=== PATIENT | male | born 1965 | race Caucasian/White ===

== ENCOUNTER → 2017-02-03 | Outpatient (CLI) | payer OTHER ==
[2017-02-03 15:37] LABS: CHLORIDE,CL 99 mmol/L (98-110); SODIUM,NA 136 mmol/L (136-146)
--- NOTE | 2017-02-04 09:27 | CR ---
EXAMINATION: Right shoulder HISTORY: Pain COMPARISON: None TECHNIQUE: 3 views FINDINGS/IMPRESSION: There is no acute osseous abnormality, dislocation, or fracture identified. Bon e mineralization appears normal. 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
== END ==
LOC: MW.CHIM 14:55
PROVIDERS: ATTEND Internal Medicine
DX: M65.4 Radial styloid tenosynovitis [de Quervain] (principal); M19.011 Primary osteoarthritis, right shoulder
CPT/HCPCS: 36415; 73030-26-RT; 73030-RT; 80053; 80061; 84550; 85025; 85652

== ENCOUNTER 2017-07-09 09:04 | Day surgery (SDC) | payer OTHER ==
[~2017-07-09 09:04] MED LIST: Bupivacaine 25%/EPINEPHrine/PF 30 ML ONE
--- NOTE | 2017-07-09 09:49 | PCM.PREANE ---
Preanesthetic Assessment - Anesthesia/Transfusion/Family Hx Anesthesia History: Prior Anesthesia Without Reaction Family History of Anesthesia Reaction: No Transfusion History: No Prior Transfusion(s) Intubation History: Unknown - Review of Systems General: No Symptoms Pulmonary: No Symptoms Cardiovascular: No Symptoms Neurological: No Symptoms Other: Reports: None - Physical Assessment O2 Sat by Pulse Oximetry: 98 Respiratory Rate: 16 Vital Signs: Last Vital Signs Temp 36.5 C 07/09/17 09:31 Pulse 75 07/09/17 09:31 Resp 16 07/09/17 09:31 BP 133/84 07/09/17 09:31 Pulse Ox 98 07/09/17 09:31 Height: 1.8 m Weight: 95.254 kg ASA Class: 2 Mental Status: Alert & Oriented x3 Airway Class: Mallampati = 2 Dentition: Reports: Normal Dentition Thyro-Mental Finger Breadths: 3 Mouth Opening Finger Breadths: 3 ROM/Head Extension: Full Lungs: Clear to Auscultation, Normal Respiratory Effort Cardiovascular: Regular Rate, Regular Rhythm - Allergies Allergies/Adverse Reactions: Allergies Allergy/AdvReac Type Severity Reaction Status Date / Time No Known Allergies Allergy Verified 07/06/17 16:54 - Blood Blood Available: No - Anesthesia Plan Pre-Op Medication Ordered: None - Acknowledgements Anesthesia Type Planned: General Anesthesia Pt an Appropriate Candidate for the Planned Anesthesia: Yes Alternatives and Risks of Anesthesia Discussed w Pt/Guardian: Yes Pt/Guardian Understands and Agrees with Anesthesia Plan: Yes PreAnesthesia Questionnaire Other HEENT History: uses reading glasses Gastrointestinal History: Reports: GERD, Hepatitis Other Gastrointestinal History: Hepatitis C Musculoskeletal History: Reports: Back Pain, Chronic, Fracture Other Musculoskeletal History: hx of fx thumb Neurological History: Reports: Concussion Psychiatric History: Reports: PTSD - Past Surgical History HEENT Surgical History: Reports: Tonsillectomy, Other (See Below) Other HEENT Surgeries/Procedures: closed reduction fx nose, hx of Laryngoscopy with polyp removal - SUBSTANCE USE Smoking Status *Q: Current Every Day Smoker Tobacco Use Within Last Twelve Months: Smokeless Tobacco Recreational Drug Use History: Yes Recreational Drug Type: Reports: Marijuana/Hashish - HOME MEDS Home Medications: Home Meds Omeprazole Magnesium [Prilosec Otc] 20 mg PO DAILY 07/06/17 [History] - CURRENT (IN HOUSE) MEDS Current Meds: Current Medications Hydrocodone Bitart/Acetaminophen ([place] 325-5 Mg) 1 tab PO Q4H PRN PRN Reason: Pain Bupivacaine HCl/Epinephrine Bitart (Marcaine 0.25%/Epinephrine 1:200,000) 20 ml INJECT ONETIME ONE Stop: 07/09/17 10:01 Cefazolin Sodium/Dextrose 2 gm (/ Premix) 50 mls @ 100 mls/hr IV ONETIME ONE Stop: 07/09/17 10:29 Lactated Ringer's (Ringers, Lactated) 1,000 mls @ 125 mls/hr IV ASDIRECTED JC Last Admin: 07/09/17 09:33 Dose: 125 mls/hr Triamcinolone Acetonide (Kenalog-40) 40 mg INJECT ONETIME ONE Stop: 07/09/17 10:01 Discontinued Medications Bupivacaine HCl/Epinephrine Bitart (Sensorc Mpf 0.25%-Epi 1:[id number]) Confirm Administered Dose 60 mls @ as directed .ROUTE .STK-MED ONE Stop: 07/09/17 07:46
[2017-07-09] MEDS ORDERED: Acetaminophen/HYDROcodone 325-5 MG Tab PO PRN (10:00)
[2017-07-09] MEDS ORDERED: ceFAZolin 2 GM in Premix Bag 1 BAG IV ONE (10:00)
[2017-07-09] MEDS ORDERED: Bupivacaine 0.25%/EPINEPHrine 1:200,000 10 ML SDV INJECT ONE (10:00)
[2017-07-09] MEDS ORDERED: Triamcinolone Acetonide 40 MG/ML 1 ML MDV INJECT ONE (10:00)
[2017-07-09] MEDS ORDERED: Lactated Ringers 1,000 ML IV SCH (10:00)
[2017-07-09] MEDS ORDERED: Ondansetron 4 MG/2 ML SDV ONE (10:12)
[2017-07-09] MEDS ORDERED: Propofol 200 MG/20 ML SDV ONE (10:12)
[2017-07-09] MEDS ORDERED: Midazolam 1 MG/ML 2 ML SDV ONE (10:12)
[2017-07-09] MEDS ORDERED: fentaNYL 100 MCG/2 ML SDV ONE (10:12)
[2017-07-09] MEDS ORDERED: Dexamethasone 4 MG/ML 5 ML MDV ONE (11:08)
[2017-07-09] MEDS ORDERED: HYDROmorphone 2 MG/ML Syringe ONE (11:18)
[2017-07-09] MEDS ORDERED: Ketorolac 30 MG/ML SDV ONE (11:49)
--- NOTE | 2017-07-09 12:40 | PCM.OPNOTE ---
- General Post-Op/Procedure Note Date of Surgery/Procedure: 07/09/17 Operative Procedure(s): left cubital and carpal tunnel release, injection left epicondyle Pre Op Diagnosis: left cubital tunnel and left carpal tunnel syndrome and left lateral epicondylitis Anesthesia Technique: General LMA, Local Primary Surgeon: Kaylin Benito Disability Insurance Claim Examiner: Pippa Zhong Complications: None Condition: Good Free Text/Narrative:: Intake & Output 07/08/17 07/09/17 07/09/17 23:59 07:59 15:59 Intake Total 1250 Balance 1250 [id number]
[2017-07-09 13:02] VITALS: BP 126/73
--- NOTE | 2017-07-12 11:16 | OR ---
SURGEON: ADAM CHASE MD DATE OF PROCEDURE: 07/09/2017 PREOPERATIVE DIAGNOSIS: Left cubital tunnel and carpal tunnel syndrome and left lateral epicondylitis. POSTOPERATIVE DIAGNOSIS: Left cubital tunnel and carpal tunnel syndrome and left lateral epicondylitis. PROCEDURES: Left cubital and carpal tunnel releases and injection of left epicondyle. ANESTHESIA: Local with general LMA. STAND IN: [place]. INDICATIONS: Mr. Gomez is a 51-year-old gentleman with left carpal and cubital tunnel syndrome and lateral epicondylitis. Risks and benefits of release of the cubital tunnel and the carpal tunnel were discussed with him and injection of left lateral epicondyle. Risks and benefits including, but not limited to, bleeding, infection, damage to underlying or overlying structures, possible need for future interventions, and possible scarring. PROCEDURE IN DETAIL: After informed consent was obtained and placed on the chart, the patient was brought to the operating theater and laid in supine position. After adequate general anesthetic was obtained, the area was prepped and draped, and a time-out was completed to confirm side and site. Attention was then paid to exsanguination of the arm and insufflation of the tourniquet to 200 mmHg and injection of local anesthesia. Once adequately anesthetized, a 15-blade was used to dissect through skin and subcutaneous tissues over the transverse carpal ligament at the palm. Dissection was carried until I reached the ligament, and then dissection was carried distally and proximally using a Littler scissors. Once adequately dissected and complete release was ensured under direct visualization, the wound was irrigated and closed using 5-0 nylon stitches in a horizontal mattress fashion. Once adequately closed, the wound was dressed with Xeroform, fluffs, a Kerlix gauze dressing, and a 2-inch Sven wrap. Attention was then paid to the cubital tunnel and dissection was carried through the skin and subcutaneous tissues, again using a 15-blade after adequate local anesthesia. Dissection was carried through the subcutaneous tissues, spreading until direct visualization of the nerve. Dissection was then carried proximally into the arm to ensure release from any of the brachial fascia. Once this was adequately released and the finger was passed to ensure this, hemostasis was ensured and dissection was then carried distally. The cubital tunnel itself was released and extended through the two heads of the flexor carpial nerve. The muscle was released in layered fashion, and again a finger passed a distal inch, in order to ensure complete release of the nerve itself. Once adequately released, the tourniquet was desufflated, and meticulous hemostasis was obtained. The skin was closed using 3-0 Monocryl stitch in deep dermal fashion and running 4-0 subcuticular for the skin. The patient tolerated the procedure well. All counts and needles were correct at the end of the case. The left lateral epicondyle was injected with 1 mL of Kenalog 40 at the end of the case as well. The patient tolerated all of this well, and all counts and needles were correct. The patient will see us in clinic in 10 to 14 days or sooner if any problems, questions, or concerns. HEGGTSARAH / TRINITY /[id number]
== END 2017-07-09 13:00 | disposition home or self-care (01) ==
LOC: MW.SDS 09:04
PROVIDERS: ATTEND Plastic Surgery
DX: G56.22 Lesion of ulnar nerve, left upper limb (principal); G56.02 Carpal tunnel syndrome, left upper limb; M77.12 Lateral epicondylitis, left elbow; M18.11 Unilateral primary osteoarthritis of first carpometacarpal joint, right hand; K21.9 Gastro-esophageal reflux disease without esophagitis; B18.2 Chronic viral hepatitis C; F17.290 Nicotine dependence, other tobacco product, uncomplicated; Z90.89 Acquired absence of other organs; Z98.890 Other specified postprocedural states; Z79.899 Other long term (current) drug therapy
CPT/HCPCS: 20605; 64718; 64721; J1100; J1170; J2250; J2405; J3010; J7120; 01810; J2704

== ENCOUNTER 2017-07-21 00:27 | Emergency (ER) | payer OTHER ==
[2017-07-21] MEDS ORDERED: Acetaminophen/HYDROcodone 325-10 MG Tab PO ONE (00:46)
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
[2017-07-21 01:55] VITALS: BP 120/67
== END 2017-07-21 01:52 | disposition home or self-care (01) ==
LOC: MW.ED 00:27
DX: T81.4XXA Infection following a procedure, initial encounter (principal); L03.114 Cellulitis of left upper limb; G89.18 Other acute postprocedural pain; K21.9 Gastro-esophageal reflux disease without esophagitis; Z98.890 Other specified postprocedural states; Z79.2 Long term (current) use of antibiotics; Z79.899 Other long term (current) drug therapy
CPT/HCPCS: 99283; A9270; 99282

== ENCOUNTER 2018-03-11 14:37 | Emergency (ER) | payer OTHER ==
[2018-03-11] MEDS ORDERED: Sodium Chloride 0.9% 2.5 ML Syringe FLUSH PRN (14:58)
[2018-03-11] MEDS ORDERED: cefTRIAXone 2 GM in Premix Bag 1 BAG IV ONE (14:58)
[2018-03-11] MEDS ORDERED: Sodium Chloride 0.9% 10 ML Syringe FLUSH PRN (14:58)
[2018-03-11] MEDS ORDERED: Sodium Chloride 0.9% 1,000 ML IV ONE (15:06)
--- NOTE | 2018-03-11 15:06 | EDM.PDOC ---
ED HPI GENERAL MEDICAL PROBLEM - General Chief Complaint: General Stated Complaint: CONFUSE, DIZZY AND FACE SWOLLEN Time Seen by Provider: 03/11/18 14:58 Source of Information: Reports: Patient, Family History Limitations: Reports: No Limitations - History of Present Illness INITIAL COMMENTS - FREE TEXT/NARRATIVE: HISTORY AND PHYSICAL: []52-year-old male presents with facial pain History of Present Illness: []Patient states that he pulled a ingrown hair out of his nose left narisis and he feels miserable/ dizzy/ sore and swollento right side of his face Swelling has been present for 2-3 days Review of Systems: As per history of present illness and below otherwise all systems reviewed and negative. Past medical history: As per history of present illness and as reviewed below otherwise noncontributory. Surgical history: As per history of present illness and as reviewed below otherwise noncontributory. Social history: No reported history of drug or alcohol abuse. Family history: As per history of present illness and as reviewed below otherwise noncontributory. Physical exam: Alert gentleman answering questions appropriately in full sentences. HEENT: Atraumatic, normocehpalic, pupils reactive, negative for conjunctival pallor or scleral icterus, mucous membranes moist, throat clear, neck supple, nontender, trachea midline. Mild tenderness to the maxillary sinus area, edema noted to the right side of his face extending from the middle of right naris to upper mandible. Lungs: Clear to auscultation, breath sounds equal bilaterally, chest non tender. Heart: S1S2, regular, negative for clicks, rubs, or JVD. Abdomen: Soft, nondistended, nontender. Negative for masses or hepatossplenmegaly. Negative for costovertebral tenderness. Pelvis: Stable nontender. Genitourinary: Deferred. Rectal: Deferred Extremities: Atraumatic, negative for cords or calf pain. Neurovascular unremarkable. Neuro: Awake, alert, oriented. Cranial nerves II through XII unremarkable. Cerebellum unremarkable. Motor and sensory unremarkable throughout. Exam nonfocal. Have discussed the CT scan with radiologist from [facility]. Discussed this case with Dr. Ward. Then discussed with ENT specialist who accepted the patient for transfer. Discussed this with the patient and his and are agreeable for him to be evaluated with the understanding that possibly could be sent home tonight. They are both aware that he needs ENT evaluation with this abscess to his face. Diagnostics: []cbc, cmp, blood cultures, ct maxillary-facial Therapeutics: [] IV saline rocephin 2gm IV Zosyn vancomycin Impression: []Facial abscess Plan: []Transfer to [facility] emergency room for further evaluation Definitive disposition and diagnosis as appropriate pending reevaluation and review of above. Onset: Sudden Duration: Day(s):, Getting Worse Location: Reports: Face Quality: Reports: Stabbing Severity: Moderate Improves with: Reports: None Worsens with: Reports: None Associated Symptoms: Reports: Headaches right upper dental Pain Score (Numeric/FACES): 5 - Related Data Allergies Allergy/AdvReac Type Severity Reaction Status Date / Time No Known Allergies Allergy Verified 03/11/18 14:43 Home Meds: Home Meds Gabapentin [Neurontin] 300 mg PO DAILY 07/21/17 [History] Past Medical History HEENT History: Reports: Other (See Below) Other HEENT History: uses reading glasses Cardiovascular History: Reports: None Respiratory History: Reports: None Gastrointestinal History: Reports: GERD, Hepatitis Other Gastrointestinal History: Hepatitis C Genitourinary History: Reports: None Musculoskeletal History: Reports: Back Pain, Chronic, Fracture Other Musculoskeletal History: hx of fx thumb Neurological History: Reports: Concussion Psychiatric History: Reports: PTSD Endocrine/Metabolic History: Reports: None Hematologic History: Reports: None Immunologic History: Reports: None Oncologic (Cancer) History: Reports: None Dermatologic History: Reports: None - Infectious Disease History Infectious Disease History: Reports: Hepatitis C - Past Surgical History Head Surgeries/Procedures: Reports: None HEENT Surgical History: Reports: Tonsillectomy, Other (See Below) Other HEENT Surgeries/Procedures: closed reduction fx nose, hx of Laryngoscopy with polyp removal Cardiovascular Surgical History: Reports: None Respiratory Surgical History: Reports: None GI Surgical History: Reports: None Male Surgical History: Reports: None Endocrine Surgical History: Reports: None Neurological Surgical History: Reports: None Musculoskeletal Surgical History: Reports: None Oncologic Surgical History: Reports: None Dermatological Surgical History: Reports: None Social & Family History - Family History Family Medical History: Noncontributory - Tobacco Use Smoking Status *Q: Never Smoker Second Hand Smoke Exposure: No - Caffeine Use Caffeine Use: Reports: None - Recreational Drug Use Recreational Drug Use: No ED ROS GENERAL - Review of Systems Review Of Systems: ROS reveals no pertinent complaints other than HPI. ED EXAM, GENERAL - Physical Exam Exam: See Below (see dictation) Course - Vital Signs Last Recorded V/S: Last Vital Signs Temp 37.7 C 03/11/18 19:21 Pulse 91 03/11/18 19:21 Resp 18 03/11/18 19:21 BP 139/86 03/11/18 19:21 Pulse Ox 95 03/11/18 19:21 - Orders/Labs/Meds Orders: Active Orders 24 hr Category Date Time Status EKG 12 Lead [EKG Documentation Completion] [RC] STAT Care 03/11/18 14:38 Active Maxillofacial with CM [Max Facial Sinus w Cont] [CT] Exams 03/11/18 15:00 Taken Stat CULTURE BLOOD [BC] Stat Lab 03/11/18 15:10 Received CULTURE BLOOD [BC] Stat Lab 03/11/18 16:10 Results Morphine Med 03/11/18 19:49 Once 4 mg IVPUSH ONETIME ONE Sodium Chloride 0.9% [Normal Saline] 500 ml Med 03/11/18 18:00 Active IV STAT Sodium Chloride 0.9% [Saline Flush] Med 03/11/18 14:58 Active 10 ml FLUSH ASDIRECTED PRN Sodium Chloride 0.9% [Saline Flush] Med 03/11/18 14:58 Active 2.5 ml FLUSH ASDIRECTED PRN Blood Culture x2 Reflex Set [OM.PC] Stat Oth 03/11/18 14:58 Ordered Saline Lock Insert [OM.PC] Stat Oth 03/11/18 14:57 Ordered Medication Orders Sodium Chloride (Normal Saline) 500 mls @ 150 mls/hr IV STAT [facility] Last Admin: 03/11/18 18:45 Dose: 150 mls/hr Morphine Sulfate (Morphine) 4 mg IVPUSH ONETIME ONE Stop: 03/11/18 19:50 Sodium Chloride (Saline Flush) 10 ml FLUSH ASDIRECTED PRN PRN Reason: Keep Vein Open Sodium Chloride (Saline Flush) 2.5 ml FLUSH ASDIRECTED PRN PRN Reason: Keep Vein Open Labs: Laboratory Tests 03/11/18 03/11/18 Range/Units 15:10 15:10 WBC 9.57 (4.0-11.0) K/uL RBC 4.32 L (4.50-5.90) M/uL Hgb 12.7 L (13.0-17.0) g/dL Hct 38.2 (38.0-50.0) % MCV 88.4 (80.0-98.0) fL MCH 29.4 (27.0-32.0) pg MCHC 33.2 (31.0-37.0) g/dL RDW Std Deviation 43.0 (28.0-62.0) fl RDW Coeff of Kayla 13 (11.0-15.0) % Plt Count 199 (150-400) K/uL MPV 10.10 (7.40-12.00) fL Neut % (Auto) 66.3 (48.0-80.0) % Lymph % (Auto) 22.3 (16.0-40.0) % Toole % (Auto) 10.3 (0.0-15.0) % Eos % (Auto) 1.0 (0.0-7.0) % Baso % (Auto) 0.1 (0.0-1.5) % Neut # (Auto) 6.3 H (1.4-5.7) K/uL Lymph # (Auto) 2.1 (0.6-2.4) K/uL Toole # (Auto) 1.0 H (0.0-0.8) K/uL Eos # (Auto) 0.1 (0.0-0.7) K/uL Baso # (Auto) 0.0 (0.0-0.1) K/uL Nucleated RBC % 0.0 /100WBC Nucleated RBCs # 0 K/uL Sodium 142 (136-148) mmol/L Potassium 3.4 L (3.5-5.1) mmol/L Chloride 106 (98-107) mmol/L Carbon Dioxide 30.4 (21.0-32.0) mmol/L BUN 8 (7.0-18.0) mg/dL Creatinine 0.7 L (0.8-1.3) mg/dL Est Cr Clr Drug Dosing 127.46 mL/min Estimated GFR (MDRD) > 60.0 ml/min Glucose 117 H (74-106) mg/dL Calcium 8.0 L (8.5-10.1) mg/dL Total Bilirubin 0.2 (0.2-1.0) mg/dL AST 26 (15-37) IU/L ALT 52 (14-63) IU/L Alkaline Phosphatase 65 (46-116) U/L Total Protein 6.7 (6.4-8.2) g/dL Albumin 2.9 L (3.4-5.0) g/dL Globulin 3.8 H (2.0-3.5) g/dL Albumin/Globulin Ratio 0.8 L (1.3-2.8) Meds: Medications Generic Name Dose Route Start Last Admin Trade Name Freq PRN Reason Stop Dose Admin Sodium Chloride 500 mls @ 150 mls/hr 03/11/18 18:00 03/11/18 18:45 Normal Saline IV 150 mls/hr STAT JC Administration Morphine Sulfate 4 mg 03/11/18 19:49 Morphine IVPUSH 03/11/18 19:50 ONETIME ONE Sodium Chloride 10 ml 03/11/18 14:58 Saline Flush FLUSH ASDIRECTED PRN Keep Vein Open Sodium Chloride 2.5 ml 03/11/18 14:58 Saline Flush FLUSH ASDIRECTED PRN Keep Vein Open Discontinued Medications Generic Name Dose Route Start Last Admin Trade Name Freq PRN Reason Stop Dose Admin Ceftriaxone Sodium/Dextrose 2 50 mls @ 100 mls/hr 03/11/18 14:58 03/11/18 16: 35 gm/ Premix IV 03/11/18 15:27 100 mls/hr ONETIME ONE Administration Sodium Chloride 1,000 mls @ 999 mls/hr 03/11/18 15:06 03/11/18 16:01 Normal Saline IV 03/11/18 16:06 999 mls/hr STAT ONE Administration Piperacillin Sod/Tazobactam 50 mls @ 100 mls/hr 03/11/18 17:12 03/11/18 17:19 Sod 3.375 gm/ Sodium Chloride IV 03/11/18 17:41 100 mls/hr ONETIME ONE Administration Vancomycin HCl 1 gm/ Sodium 250 mls @ 250 mls/hr 03/11/18 17:12 03/11/18 17: 49 Chloride IV 03/11/18 18:11 250 mls/hr ONETIME ONE Administration Iopamidol 100 ml 03/11/18 16:22 05/25/18 16:26 Isovue-370 (76%) IVPUSH 03/11/18 16:23 100 ml ONETIME STA Administration Morphine Sulfate 2 mg 03/11/18 16:41 03/11/18 16:46 Morphine IVPUSH 03/11/18 16:42 2 mg ONETIME ONE Administration Ondansetron HCl 4 mg 03/11/18 16:41 03/11/18 16:46 Zofran IVPUSH 03/11/18 16:42 4 mg ONETIME ONE Administration Departure - Departure Time of Disposition: 17:38 Disposition: DC/Tfer to Acute Hospital 02 Condition: Fair Clinical Impression: Acute abscess of face - Discharge Information Referrals: PCP,None [Primary Care Provider] - Forms: ED Department Discharge Additional Instructions: The following information is given to patients seen in the emergency department who are being discharged to home. This information is to outline your options for follow-up care. We provide all patients seen in our emergency department with a follow-up referral. The need for follow-up, as well as the timing and circumstances, are variable depending upon the specifics of your emergency department visit. If you don't have a primary care physician on staff, we will provide you with a referral. We always advise you to contact your personal physician following an emergency department visit to inform them of the circumstance of the visit and for follow-up with them and/or the need for any referrals to a consulting specialist. The emergency department will also refer you to a specialist when appropriate. This referral assures that you have the opportunity for followup care with a specialist. All of these measure are taken in an effort to provide you with optimal care, which includes your followup. Under all circumstances we always encourage you to contact your private physician who remains a resource for coordinating your care. When calling for followup care, please make the office aware that this follow-up is from your recent emergency room visit. If for any reason you are refused follow-up, please contact the [facility] emergency department at and asked to speak to the emergency department charge nurse. - My Orders Last 24 Hours: My Active Orders 03/11/18 14:57 Saline Lock Insert [OM.PC] Stat 03/11/18 14:58 Sodium Chloride 0.9% [Saline Flush] 10 ml FLUSH ASDIRECTED PRN Sodium Chloride 0.9% [Saline Flush] 2.5 ml FLUSH ASDIRECTED PRN Blood Culture x2 Reflex Set [OM.PC] Stat 03/11/18 15:00 Maxillofacial with CM [Max Facial Sinus w Cont] [CT] Stat 03/11/18 15:10 CULTURE BLOOD [BC] Stat 03/11/18 16:10 CULTURE BLOOD [BC] Stat 03/11/18 18:00 Sodium Chloride 0.9% [Normal Saline] 500 ml IV STAT 03/11/18 19:49 Morphine 4 mg IVPUSH ONETIME ONE - Assessment/Plan Last 24 Hours: My Active Orders 03/11/18 14:57 Saline Lock Insert [OM.PC] Stat 03/11/18 14:58 Sodium Chloride 0.9% [Saline Flush] 10 ml FLUSH ASDIRECTED PRN Sodium Chloride 0.9% [Saline Flush] 2.5 ml FLUSH ASDIRECTED PRN Blood Culture x2 Reflex Set [OM.PC] Stat 03/11/18 15:00 Maxillofacial with CM [Max Facial Sinus w Cont] [CT] Stat 03/11/18 15:10 CULTURE BLOOD [BC] Stat 03/11/18 16:10 CULTURE BLOOD [BC] Stat 03/11/18 18:00 Sodium Chloride 0.9% [Normal Saline] 500 ml IV STAT 03/11/18 19:49 Morphine 4 mg IVPUSH ONETIME ONE
[2018-03-11 15:56] LABS: CHLORIDE,CL 106 mmol/L (98-107); SODIUM,NA 142 mmol/L (136-148)
[2018-03-11] MEDS ORDERED: Iopamidol 755 Mg/ML 100 ML Bottle IVPUSH STA (16:22)
[2018-03-11] MEDS ORDERED: Morphine 2 MG/ML Syringe IVPUSH ONE (16:41)
[2018-03-11] MEDS ORDERED: Ondansetron 4 MG/2 ML SDV IVPUSH ONE (16:41)
[2018-03-11] MEDS ORDERED: Piperacillin/Tazobactam 3.375 GM in Sodium Chloride 0.9% 50 ML IV ONE (17:12)
[2018-03-11] MEDS ORDERED: Sodium Chloride 0.9% 500 ML IV SCH (18:00)
[2018-03-11 19:22] VITALS: BP 139/86
[2018-03-11] MEDS ORDERED: Morphine 4 MG/ML Syringe IVPUSH ONE (19:49)
--- NOTE | 2018-03-14 10:54 | CT ---
EXAM DATE: 03/11/18 PATIENT'S AGE: 52 Patient: BRANDON SUN Facility: [place], [place] Site . Site : [id number] Study: CT Facial W CONT [id number]/25/2018 4:52:31 PM Ordering Physician: Doctor Don Final Report: INDICATION: Right-sided facial swelling. TECHNIQUE: Some of the face was acquired in the axial plane with IV contrast. Coronal reformats are provided. No comparisons. FINDINGS: Image quality degraded due to dental amalgam. Mild mucosal thickening within the left maxillary sinus. The visualized osseous structures of the face appear intact. The globes appear within normal limits. The intraorbital contents appear within normal limits. There is a palpable marker placed over the right cheek. Deep to the palpable marker is evidence of mild fat stranding with no focal fluid collections. There is a 17 x 10 millimeter peripherally enhancing fluid collection inferior to the right naris. There does appear to be a small fluid component extending into the inferior aspect of the nasal septum. This 2nd fluid collection measures 12 by 3 millimeters. In shotty bilateral level 2 and prominent 12 mm bilateral level 1 lymph nodes are demonstrated which are likely reactive in nature. IMPRESSION: 1. Fat stranding deep to the palpable marker overlying the right cheek appearing most compatible with localized inflammatory change such as that seen with a localized cellulitis. 2. Peripherally enhancing fluid collection ventral to the right paramedian maxilla inferior to the right nares appearing most worrisome for an abscess formation with a small component that appears to extend ventrally to involve the inferior nasal septum. 3. Shoddy bilateral 2 lymph nodes with mildly prominent bilateral level 1 lymph nodes that are likely reactive in nature. 4. Preliminary results were called to ordering provider at 1705 hours. Dictated by Souleymane Sims MD @ 03/11/2018 5:06:57 PM Please note that all CT scans at this facility use dose modulation, iterative reconstruction, and/or weight-based dosing when appropriate to reduce radiation dose to as low as reasonably achievable. Dictated by: Souleymane Sims MD @ 03/11/2018 17:07:02 (Electronic Signature) Report Signed by Proxy. [facility]ETHESDA HOSPITALAdrienne
== END 2018-03-11 20:04 ==
LOC: MW.ED 14:37
DX: L02.01 Cutaneous abscess of face (principal); Z79.899 Other long term (current) drug therapy
CPT/HCPCS: 36415; 70487; 80053; 85025; 87040; 93005; 96361; 96365; 96367; 96375; 96376; 99285; J0696; J2270; J2405; J2543; J3370; J7040; J7050; Q9967

== ENCOUNTER 2018-06-11 19:24 | Inpatient (IN) | payer OTHER ==
[2018-06-11] MEDS ORDERED: Sodium Chloride 0.9% 1,000 ML IV ONE (19:42)
--- NOTE | 2018-06-11 19:46 | EDM.PDOC ---
ED HPI GENERAL MEDICAL PROBLEM - General Stated Complaint: LEFT SIDE OF FACE RED ASND SWOLLEN Time Seen by Provider: 06/11/18 19:37 - History of Present Illness INITIAL COMMENTS - FREE TEXT/NARRATIVE: HISTORY AND PHYSICAL: History of present illness: Patient 52-year-old white male sensory concern of left facial abscess he states this started over the last several days then he squeezed it and has gotten some pus from this he has a history of MRSA he also has several other areas of small excoriation and erythema these are on his abdominal wall and buttock Review of systems: As per history of present illness and below otherwise all systems reviewed and negative. Past medical history: As per history of present illness and as reviewed below otherwise noncontributory. Surgical history: As per history of present illness and as reviewed below otherwise noncontributory. Social history: No reported history of drug or alcohol abuse. Family history: As per history of present illness and as reviewed below otherwise noncontributory. Physical exam: HEENT: Patient is proximate 3 x 5 cm area of erythema with central fluctuance and some drainage noted. This is purulent in nature, normocephalic, pupils reactive, negative for conjunctival pallor or scleral icterus, mucous membranes moist, throat clear, neck supple, nontender, trachea midline. Lungs: Clear to auscultation, breath sounds equal bilaterally, chest nontender. Heart: S1S2, regular, negative for clicks, rubs, or JVD. Abdomen: Soft, nondistended, nontender. Negative for masses or hepatosplenomegaly. Negative for costovertebral tenderness. Pelvis: Stable nontender. Genitourinary: Deferred. Rectal: Deferred. Extremities: Atraumatic, negative for cords or calf pain. Neurovascular unremarkable. Neuro: Awake, alert, oriented. Cranial nerves II through XII unremarkable. Cerebellum unremarkable. Motor and sensory unremarkable throughout. Exam nonfocal. Diagnostics: CBC CMP wound culture blood culture 2 CT maxillofacial with contrast Therapeutics: Normal saline 1 L bolus vancomycin 1 g IV procedure note: patient's left facial abscess was anesthetized with 1% lidocaine without epinephrine incision and drainage with 11 blade scalpel was accomplished and 1-2 mL joaquin pus was returned followed by serosanguineous material patient was packed with quarter- inch iodoform gauze and tolerated procedure well Impression: #1 facial abscess status post incision and drainage #2 history of MRSA #3 cellulitis Definitive disposition and diagnosis as appropriate pending reevaluation and review of above. - Related Data Allergies Allergy/AdvReac Type Severity Reaction Status Date / Time No Known Allergies Allergy Verified 03/11/18 14:43 Home Meds: Home Meds Gabapentin [Neurontin] 300 mg PO DAILY 07/21/17 [History] Past Medical History HEENT History: Reports: Other (See Below) Other HEENT History: uses reading glasses Cardiovascular History: Reports: None Respiratory History: Reports: None Gastrointestinal History: Reports: GERD, Hepatitis Other Gastrointestinal History: Hepatitis C Genitourinary History: Reports: None Musculoskeletal History: Reports: Back Pain, Chronic, Fracture Other Musculoskeletal History: hx of fx thumb Neurological History: Reports: Concussion Psychiatric History: Reports: PTSD Endocrine/Metabolic History: Reports: None Hematologic History: Reports: None Immunologic History: Reports: None Oncologic (Cancer) History: Reports: None Dermatologic History: Reports: None - Infectious Disease History Infectious Disease History: Reports: Hepatitis C - Past Surgical History Head Surgeries/Procedures: Reports: None HEENT Surgical History: Reports: Tonsillectomy, Other (See Below) Other HEENT Surgeries/Procedures: closed reduction fx nose, hx of Laryngoscopy with polyp removal Cardiovascular Surgical History: Reports: None Respiratory Surgical History: Reports: None GI Surgical History: Reports: None Male Surgical History: Reports: None Endocrine Surgical History: Reports: None Neurological Surgical History: Reports: None Musculoskeletal Surgical History: Reports: None Oncologic Surgical History: Reports: None Dermatological Surgical History: Reports: None Social & Family History - Family History Family Medical History: Noncontributory - Caffeine Use Caffeine Use: Reports: None ED ROS GENERAL - Review of Systems Review Of Systems: ROS reveals no pertinent complaints other than HPI. ED EXAM, GENERAL - Physical Exam Exam: See Below (See dictation) Course - Vital Signs Last Recorded V/S: Last Vital Signs Temp 37.2 C 06/11/18 19:24 Pulse 95 06/11/18 19:24 Resp 18 06/11/18 19:24 BP 177/103 H 06/11/18 19:24 Pulse Ox 96 06/11/18 19:24 - Orders/Labs/Meds Orders: Active Orders 24 hr Category Date Time Status Max Facial Sinus w Cont [CT] Stat Exams 06/11/18 19:41 Ordered CBC WITH AUTO DIFF [HEME] Stat Lab 06/11/18 19:40 Ordered COMPREHENSIVE METABOLIC PN,CMP [CHEM] Stat Lab 06/11/18 19:40 Ordered CULTURE BLOOD [BC] Stat Lab 06/11/18 19:41 Ordered CULTURE BLOOD [BC] Stat Lab 06/11/18 19:41 Ordered CULTURE WOUND [RM] Stat Lab 06/11/18 19:42 Ordered Sodium Chloride 0.9% [Normal Saline] 1,000 ml Med 06/11/18 19:42 Active IV STAT Vancomycin [Vancocin] 1 gm Med 06/11/18 19:42 Active Sodium Chloride 0.9% [Normal Saline] 250 ml IV ONETIME Blood Culture x2 Reflex Set [OM.PC] Stat Oth 06/11/18 19:41 Ordered Medication Orders Sodium Chloride (Normal Saline) 1,000 mls @ 999 mls/hr IV STAT ONE Stop: 06/11/18 20:42 Vancomycin HCl 1 gm/ Sodium (Chloride) 250 mls @ 250 mls/hr IV ONETIME ONE Stop: 06/11/18 20:41 Meds: Medications Generic Name Dose Route Start Last Admin Trade Name Freq PRN Reason Stop Dose Admin Sodium Chloride 1,000 mls @ 999 mls/hr 06/11/18 19:42 Normal Saline IV 06/11/18 20:42 STAT ONE Vancomycin HCl 1 gm/ Sodium 250 mls @ 250 mls/hr 06/11/18 19:42 Chloride IV 06/11/18 20:41 ONETIME ONE Discontinued Medications Generic Name Dose Route Start Last Admin Trade Name Freq PRN Reason Stop Dose Admin Lidocaine HCl Confirm 06/11/18 20:00 Xylocaine-Mpf 1% Administered 06/11/18 20:01 Dose 5 mls @ as directed .ROUTE .STK-MED ONE Departure - Departure Time of Disposition: 20:11 Disposition: Refer to Observation Condition: Good Clinical Impression: Cellulitis, Facial abscess - Discharge Information Referrals: PCP,None [Primary Care Provider] - - My Orders Last 24 Hours: My Active Orders 06/11/18 19:40 CBC WITH AUTO DIFF [HEME] Stat COMPREHENSIVE METABOLIC PN,CMP [CHEM] Stat 06/11/18 19:41 Max Facial Sinus w Cont [CT] Stat CULTURE BLOOD [BC] Stat CULTURE BLOOD [BC] Stat Blood Culture x2 Reflex Set [OM.PC] Stat 06/11/18 19:42 CULTURE WOUND [RM] Stat Sodium Chloride 0.9% [Normal Saline] 1,000 ml IV STAT Vancomycin [Vancocin] 1 gm Sodium Chloride 0.9% [Normal Saline] 250 ml IV ONETIME - Assessment/Plan Last 24 Hours: My Active Orders 06/11/18 19:40 CBC WITH AUTO DIFF [HEME] Stat COMPREHENSIVE METABOLIC PN,CMP [CHEM] Stat 06/11/18 19:41 Max Facial Sinus w Cont [CT] Stat CULTURE BLOOD [BC] Stat CULTURE BLOOD [BC] Stat Blood Culture x2 Reflex Set [OM.PC] Stat 06/11/18 19:42 CULTURE WOUND [RM] Stat Sodium Chloride 0.9% [Normal Saline] 1,000 ml IV STAT Vancomycin [Vancocin] 1 gm Sodium Chloride 0.9% [Normal Saline] 250 ml IV ONETIME
[2018-06-11 20:37] LABS: CHLORIDE,CL 104 mmol/L (98-107); SODIUM,NA 140 mmol/L (136-148)
[2018-06-11] MEDS ORDERED: Iopamidol 755 MG/ML 500 ML Multipack Bottle IVPUSH STA (21:43)
[2018-06-11] MEDS ORDERED: Sodium Chloride 0.9% 2.5 ML Syringe FLUSH PRN (21:46)
[2018-06-11] MEDS ORDERED: Sodium Chloride 0.9% 10 ML Syringe FLUSH PRN (21:46)
[2018-06-11] MEDS ORDERED: Ondansetron 4 MG/2 ML SDV IVPUSH PRN (21:46)
[2018-06-11] MEDS ORDERED: Albuterol/Ipratropium 3.0-0.5 MG/3 ML Neb Soln NEB PRN (21:46)
[2018-06-11] MEDS ORDERED: Acetaminophen 325 MG Tab PO PRN (21:46)
[2018-06-11] MEDS: oxyCODONE 5 MG Tab PO PRN (23:12)
[2018-06-11] MEDS: Enoxaparin 40 MG/0.4 ML Syringe SUBCUT SCH (23:12)
[2018-06-11] MEDS: Lactated Ringers 1,000 ML IV SCH (23:45)
[2018-06-11] MEDS: Piperacillin/Tazobactam 4.5 GM in Sodium Chloride 0.9% 100 ML IV SCH (23:45)
[2018-06-12] MEDS: Ketorolac 30 MG/ML SDV IVPUSH PRN (01:02)
[2018-06-12] MEDS: Piperacillin/Tazobactam 4.5 GM in Sodium Chloride 0.9% 100 ML IV SCH ×4 (04:47→21:01)
[2018-06-12] MEDS: Omeprazole 20 MG Cap.CR PO SCH (06:40)
[2018-06-12 07:38] LABS: CHLORIDE,CL 106 mmol/L (98-107); SODIUM,NA 143 mmol/L (136-148)
[2018-06-12] MEDS: Gabapentin 300 MG Cap PO SCH (08:54)
--- NOTE | 2018-06-12 09:18 | PCM.HP ---
H&P History of Present Illness - General Date of Service: 06/12/18 Admit Problem/Dx: Admission Diagnosis/Problem Admission Diagnosis/Problem Cellulitis and abscess Patient 53 years old man with no significant medical past medical history presented to hospital with painfull swelling , redness and and warmth of his left cheek that started 4 days ago and he also has a a lesion on his lower abdomen, in the middle of the abdomen and also on his left buttock. Patient denies fevers. A few months ago he had abscess developed on his nasal filtrum and he grew up MRSA. Patient shaves and he states his infection is due to ingrown hair. He also shaves on his abdomen. - History of Present Illness Onset of Symptoms: Reports: Gradual Duration of Symptoms: Reports: Day(s): Location: Reports: Face, Abdomen, Other (buttock) left face Pain Score (Numeric/FACES): 4 - Related Data Allergies/Adverse Reactions: Allergies Allergy/AdvReac Type Severity Reaction Status Date / Time No Known Allergies Allergy Verified 03/11/18 14:43 Home Medications: Home Meds Gabapentin [Neurontin] 300 mg PO DAILY 07/21/17 [History] Omeprazole 20 mg PO DAILY 06/11/18 [History] Past Medical History HEENT History: Reports: Other (See Below) Other HEENT History: uses reading glasses Cardiovascular History: Reports: None Respiratory History: Reports: None Gastrointestinal History: Reports: GERD, Hepatitis Other Gastrointestinal History: Hepatitis C Genitourinary History: Reports: None Musculoskeletal History: Reports: Back Pain, Chronic, Fracture Other Musculoskeletal History: hx of fx thumb Neurological History: Reports: Concussion Psychiatric History: Reports: PTSD Endocrine/Metabolic History: Reports: None Hematologic History: Reports: None Immunologic History: Reports: None Oncologic (Cancer) History: Reports: None Dermatologic History: Reports: None - Infectious Disease History Infectious Disease History: Reports: Hepatitis C - Past Surgical History Head Surgeries/Procedures: Reports: None HEENT Surgical History: Reports: Tonsillectomy, Other (See Below) Other HEENT Surgeries/Procedures: closed reduction fx nose, hx of Laryngoscopy with polyp removal Cardiovascular Surgical History: Reports: None Respiratory Surgical History: Reports: None GI Surgical History: Reports: None Male Surgical History: Reports: None Endocrine Surgical History: Reports: None Neurological Surgical History: Reports: None Musculoskeletal Surgical History: Reports: None Oncologic Surgical History: Reports: None Dermatological Surgical History: Reports: None Social & Family History - Family History Family Medical History: Noncontributory - Tobacco Use Smoking Status *Q: Never Smoker Second Hand Smoke Exposure: No - Caffeine Use Caffeine Use: Reports: Energy Drinks - Alcohol Use Date of Last Drink: 06/04/18 - Recreational Drug Use Recreational Drug Use: Yes Drug Use in Last 12 Months: Yes Recreational Drug Type: Reports: Methamphetamine Recreational Drug Use Frequency: Not Used In Over 6 Months H&P Review of Systems - Review of Systems: Review Of Systems: See Below General: Reports: No Symptoms HEENT: Reports: No Symptoms Pulmonary: Reports: No Symptoms Cardiovascular: Reports: No Symptoms Gastrointestinal: Reports: No Symptoms Genitourinary: Reports: No Symptoms Musculoskeletal: Reports: No Symptoms Skin: Reports: Erythema (wamth , induration and swelling ) Exam - Exam Exam: See Below - Vital Signs Vital Signs: Last Vital Signs Temp 97.7 F 06/12/18 03:56 Pulse 86 06/12/18 03:56 Resp 16 06/12/18 03:56 BP 123/78 06/12/18 03:56 Pulse Ox 97 06/12/18 03:56 Weight: 223 lb 11.2 oz - Exam General: Alert, Oriented HEENT: Conjunctiva Clear, EACs Clear Neck: Supple, Trachea Midline Lungs: Clear to Auscultation, Normal Respiratory Effort Cardiovascular: Regular Rate, Regular Rhythm, Normal S1, Normal S2 GI/Abdominal Exam: Normal Bowel Sounds, Soft, Non-Tender, No Organomegaly Rectal (Males) Exam: Tenderness Back Exam: Normal Inspection Extremities: Normal Inspection Skin: Other (skin erythema and fluctuation on the left cheek, left buttock and skin erithema on the abdomen) - Patient Data Lab Results Last 24 hrs: Laboratory Results - last 24 hr 06/11/18 06/11/18 06/12/18 Range/Units 19:55 19:55 06:58 WBC 10.42 8.12 (4.0-11.0) K/uL RBC 4.03 L 3.98 L (4.50-5.90) M/uL Hgb 11.8 L 11.6 L (13.0-17.0) g/dL Hct 35.2 L 34.6 L (38.0-50.0) % MCV 87.3 86.9 (80.0-98.0) fL MCH 29.3 29.1 (27.0-32.0) pg MCHC 33.5 33.5 (31.0-37.0) g/dL RDW Std Deviation 42.9 43.3 (28.0-62.0) fl RDW Coeff of Kayla 13 14 (11.0-15.0) % Plt Count 241 220 (150-400) K/uL MPV 9.90 9.80 (7.40-12.00) fL Neut % (Auto) 64.7 (48.0-80.0) % Lymph % (Auto) 24.1 (16.0-40.0) % [place] % (Auto) 10.1 (0.0-15.0) % Eos % (Auto) 1.0 (0.0-7.0) % Baso % (Auto) 0.1 (0.0-1.5) % Neut # (Auto) 6.8 H (1.4-5.7) K/uL Lymph # (Auto) 2.5 H (0.6-2.4) K/uL [place] # (Auto) 1.1 H (0.0-0.8) K/uL Eos # (Auto) 0.1 (0.0-0.7) K/uL Baso # (Auto) 0.0 (0.0-0.1) K/uL Nucleated RBC % 0.0 0.0 /100WBC Nucleated RBCs # 0 0 K/uL Sodium 140 (136-148) mmol/L Potassium 3.6 (3.5-5.1) mmol/L Chloride 104 (98-107) mmol/L Carbon Dioxide 32.6 H (21.0-32.0) mmol/L BUN 9 (7.0-18.0) mg/dL Creatinine 0.8 (0.8-1.3) mg/dL Est Cr Clr Drug Dosing 111.53 mL/min Estimated GFR (MDRD) > 60.0 ml/min Glucose 118 H (74-106) mg/dL Calcium 8.6 (8.5-10.1) mg/dL Total Bilirubin 0.2 (0.2-1.0) mg/dL AST 49 H (15-37) IU/L ALT 79 H (14-63) IU/L Alkaline Phosphatase 71 (46-116) U/L Total Protein 6.7 (6.4-8.2) g/dL Albumin 3.1 L (3.4-5.0) g/dL Globulin 3.6 H (2.0-3.5) g/dL Albumin/Globulin Ratio 0.9 L (1.3-2.8) 06/12/18 Range/Units 06:58 WBC (4.0-11.0) K/uL RBC (4.50-5.90) M/uL Hgb (13.0-17.0) g/dL Hct (38.0-50.0) % MCV (80.0-98.0) fL MCH (27.0-32.0) pg MCHC (31.0-37.0) g/dL RDW Std Deviation (28.0-62.0) fl RDW Coeff of Kayla (11.0-15.0) % Plt Count (150-400) K/uL MPV (7.40-12.00) fL Neut % (Auto) (48.0-80.0) % Lymph % (Auto) (16.0-40.0) % [place] % (Auto) (0.0-15.0) % Eos % (Auto) (0.0-7.0) % Baso % (Auto) (0.0-1.5) % Neut # (Auto) (1.4-5.7) K/uL Lymph # (Auto) (0.6-2.4) K/uL [place] # (Auto) (0.0-0.8) K/uL Eos # (Auto) (0.0-0.7) K/uL Baso # (Auto) (0.0-0.1) K/uL Nucleated RBC % /100WBC Nucleated RBCs # K/uL Sodium 143 (136-148) mmol/L Potassium 3.9 (3.5-5.1) mmol/L Chloride 106 (98-107) mmol/L Carbon Dioxide 30.5 (21.0-32.0) mmol/L BUN 12 (7.0-18.0) mg/dL Creatinine 0.8 (0.8-1.3) mg/dL Est Cr Clr Drug Dosing 111.53 mL/min Estimated GFR (MDRD) > 60.0 ml/min Glucose 97 (74-106) mg/dL Calcium 8.0 L (8.5-10.1) mg/dL Total Bilirubin 0.3 (0.2-1.0) mg/dL AST 40 H (15-37) IU/L ALT 66 H (14-63) IU/L Alkaline Phosphatase 69 (46-116) U/L Total Protein 5.5 L (6.4-8.2) g/dL Albumin 2.5 L (3.4-5.0) g/dL Globulin 3.0 (2.0-3.5) g/dL Albumin/Globulin Ratio 0.8 L (1.3-2.8) Result Diagrams: 06/12/18 06:58 06/12/18 06:58 - Problem List (1) Furuncle of face SNOMED Code(s): 66755612 ICD Code: L02.02 - FURUNCLE OF FACE Status: Acute Current Visit: Yes (2) Furuncle of buttock SNOMED Code(s): 93909617 ICD Code: L02.32 - FURUNCLE OF BUTTOCK Status: Acute Current Visit: Yes (3) Cellulitis SNOMED Code(s): 844528085 ICD Code: L03.90 - CELLULITIS, UNSPECIFIED Status: Acute Current Visit: Yes Problem List Initiated/Reviewed/Updated: Yes Orders Last 24hrs: Active Orders 24 hr Category Date Time Status Patient Status [ADT] Stat ADT 06/11/18 20:14 Active Oxygen Therapy [RC] PRN Care 06/11/18 21:46 Active Pulse Oximetry [RC] PRN Care 06/11/18 21:46 Active RT Aerosol Therapy [RC] ASDIRECTED Care 06/11/18 21:49 Active Up ad Luisa [RC] ASDIRECTED Care 06/11/18 21:46 Active VTE/DVT Education [RC] PER UNIT ROUTINE Care 06/11/18 21:46 Active Vital Signs [RC] Q4H Care 06/11/18 21:46 Active Regular Diet [DIET] Diet 06/12/18 Breakfast Active Max Facial Sinus w Cont [CT] Stat Exams 06/11/18 19:41 Taken CBC W/O DIFF,HEMOGRAM [HEME] AM Lab 06/13/18 05:11 Ordered CBC W/O DIFF,HEMOGRAM [HEME] AM Lab 06/14/18 05:11 Ordered CBC W/O DIFF,HEMOGRAM [HEME] AM Lab 06/15/18 05:11 Ordered COMPREHENSIVE METABOLIC PN,CMP [CHEM] AM Lab 06/13/18 05:11 Ordered COMPREHENSIVE METABOLIC PN,CMP [CHEM] AM Lab 06/14/18 05:11 Ordered COMPREHENSIVE METABOLIC PN,CMP [CHEM] AM Lab 06/15/18 05:11 Ordered CULTURE BLOOD [BC] Stat Lab 06/11/18 19:55 Received CULTURE BLOOD [BC] Stat Lab 06/11/18 20:05 Received VANCOMYCIN TROUGH [CHEM] Timed Lab 06/13/18 07:30 Ordered Acetaminophen [Tylenol] Med 06/11/18 21:46 Active 650 mg PO Q4H PRN Albuterol/Ipratropium [DuoNeb 3.0-0.5 MG/3 ML] Med 06/11/18 21:46 Active 3 ml NEB Q4HRRT PRN Enoxaparin [Lovenox] Med 06/11/18 22:00 Active 40 mg SUBCUT Q24H Gabapentin [Neurontin] Med 06/12/18 09:00 Active 300 mg PO DAILY Ketorolac [Toradol] Med 06/12/18 00:28 Active 30 mg IVPUSH Q6H PRN Lactated Ringers [Ringers, Lactated] 1,000 ml Med 06/11/18 22:00 Active IV ASDIRECTED Morphine Med 06/11/18 21:46 Active 2 mg IVPUSH Q2H PRN Omeprazole Med 06/12/18 07:30 Active 20 mg PO ACBREAKFAST Ondansetron [Zofran] Med 06/11/18 21:46 Active 4 mg IVPUSH Q4H PRN Piperacillin/Tazobactam [Piperacil-Tazobact] 4.5 gm Med 06/12/18 10:00 Active Sodium Chloride 0.9% [Normal Saline] 100 ml IV Q6H Sodium Chloride 0.9% [Saline Flush] Med 06/11/18 21:46 Active 10 ml FLUSH ASDIRECTED PRN Sodium Chloride 0.9% [Saline Flush] Med 06/11/18 21:46 Active 2.5 ml FLUSH ASDIRECTED PRN Vancomycin 1,250 mg Med 06/12/18 08:30 Active Sodium Chloride 0.9% [Normal Saline] 250 ml IV Q8H Vancomycin Pharmacy to Dose [Pharmacy to Dose - Med 06/11/18 22:00 Active Vancomycin] See Dose Instructions .XX ASDIRECTED oxyCODONE Med 06/11/18 21:46 Active 5 mg PO Q4H PRN Blood Culture x2 Reflex Set [OM.PC] Stat Ot 06/11/18 19:41 Ordered Peripheral IV Insertion Adult [OM.PC] Routine Oth 06/11/18 21:46 Ordered Sequential Compression Device [OM.PC] Per Unit Routine Oth 06/11/18 21:46 Ordered Resuscitation Status Routine Resus Stat 06/11/18 21:46 Ordered Medication Orders Acetaminophen (Tylenol) 650 mg PO Q4H PRN PRN Reason: Pain (Mild 1-3)/fever Albuterol/Ipratropium (Duoneb 3.0-0.5 Mg/3 Ml) 3 ml NEB Q4HRRT PRN PRN Reason: Shortness Of Breath/wheezing Enoxaparin Sodium (Lovenox) 40 mg SUBCUT Q24H [facility] Last Admin: 06/11/18 23:12 Dose: 40 mg Gabapentin (Neurontin) 300 mg PO DAILY [facility] Last Admin: 06/12/18 08:54 Dose: 300 mg Lactated Ringer's (Ringers, Lactated) 1,000 mls @ 125 mls/hr IV ASDIRECTED [facility] Last Admin: 06/11/18 23:45 Dose: 125 mls/hr Piperacillin Sod/Tazobactam (Sod 4.5 gm/ Sodium Chloride) 100 mls @ 200 mls/hr IV Q6H [facility] Vancomycin HCl 1,250 mg/ (Sodium Chloride) 250 mls @ 166.667 mls/hr IV Q8H [facility] Last Admin: 06/12/18 08:53 Dose: 166.667 mls/hr Ketorolac Tromethamine (Toradol) 30 mg IVPUSH Q6H PRN PRN Reason: Headache Stop: 06/17/18 00:28 Last Admin: 06/12/18 01:02 Dose: 30 mg Morphine Sulfate (Morphine) 2 mg IVPUSH Q2H PRN PRN Reason: Pain (severe 7-10) Stop: 06/12/18 21:47 Omeprazole (Omeprazole) 20 mg PO ACBREAKFAST [facility] Last Admin: 06/12/18 06:40 Dose: 20 mg Ondansetron HCl (Zofran) 4 mg IVPUSH Q4H PRN PRN Reason: Nausea Oxycodone HCl (Oxycodone) 5 mg PO Q4H PRN PRN Reason: Pain (moderate 4-6) Last Admin: 06/11/18 23:12 Dose: 5 mg Sodium Chloride (Saline Flush) 10 ml FLUSH ASDIRECTED PRN PRN Reason: Keep Vein Open Sodium Chloride (Saline Flush) 2.5 ml FLUSH ASDIRECTED PRN PRN Reason: Keep Vein Open Vancomycin HCl (Pharmacy To Dose - Vancomycin) 0 dose .XX ASDIRECTED [facility] Assessment/Plan Comment:: We'll admit patient to medical floor and start patient on IV vancomycin, pharmacy to dose and IV Zosyn 4.5 g every 6 hours, then follow-up blood cultures and wound cultures. will start patient on Ringer lactate at 125 mL/h, surgery consult, patient has incision and packing of his furuncule of his face , ER physician recommended to remove packing from his face after 24 h , and follow-up surgery consult. Patient should have Bactroban gel intranasally for 5 days and chlorhexidine soap to bath, to decolonize him for MRSA and also she should avoid shaving. For DVT prophylaxis Lovenox 40 mg subcutaneous every 24 hours. For pain patient will be given oxycodone 5 mg by mouth every 6 hours when necessary for pain
[2018-06-12] MEDS: Morphine 2 MG/ML Syringe IVPUSH PRN ×2 (11:02→16:23)
[2018-06-12] MEDS: Lactated Ringers 1,000 ML IV SCH ×2 (11:15→21:22)
--- NOTE | 2018-06-12 14:20 | PCM.CONS ---
H&P History of Present Illness - General Date of Service: 06/12/18 Admit Problem/Dx: Admission Diagnosis/Problem Admission Diagnosis/Problem Cellulitis and abscess Left facial abscess Right buttock abscess Source of Information: Patient History Limitations: Reports: No Limitations - History of Present Illness Initial Comments - Free Text/Narative: 52 y/o male admitted with facial cellulitis and abscess, a right buttock abscess and a small area of abdominal cellulitis. Duration of Symptoms: Reports: Day(s): Location: Reports: Face, Abdomen, Other (right buttock) Quality: Reports: Ache, Pressure Severity: Mild Improves with: Reports: Rest Worsens with: Reports: Movement Associated Symptoms: Denies: Confusion, Chest Pain, Fever/Chills, Nausea/ Vomiting left face Pain Score (Numeric/FACES): 4 - Related Data Allergies/Adverse Reactions: Allergies Allergy/AdvReac Type Severity Reaction Status Date / Time No Known Allergies Allergy Verified 03/11/18 14:43 Home Medications: Home Meds Gabapentin [Neurontin] 300 mg PO DAILY 07/21/17 [History] Omeprazole 20 mg PO DAILY 06/11/18 [History] Past Medical History HEENT History: Reports: Other (See Below) Other HEENT History: uses reading glasses Cardiovascular History: Reports: None Respiratory History: Reports: None Gastrointestinal History: Reports: GERD, Hepatitis Other Gastrointestinal History: Hepatitis C Genitourinary History: Reports: None Musculoskeletal History: Reports: Back Pain, Chronic, Fracture Other Musculoskeletal History: hx of fx thumb Neurological History: Reports: Concussion Psychiatric History: Reports: PTSD Endocrine/Metabolic History: Reports: None Hematologic History: Reports: None Immunologic History: Reports: None Oncologic (Cancer) History: Reports: None Dermatologic History: Reports: None - Infectious Disease History Infectious Disease History: Reports: Hepatitis C - Past Surgical History Head Surgeries/Procedures: Reports: None HEENT Surgical History: Reports: Tonsillectomy, Other (See Below) Other HEENT Surgeries/Procedures: closed reduction fx nose, hx of Laryngoscopy with polyp removal Cardiovascular Surgical History: Reports: None Respiratory Surgical History: Reports: None GI Surgical History: Reports: None Male Surgical History: Reports: None Endocrine Surgical History: Reports: None Neurological Surgical History: Reports: None Musculoskeletal Surgical History: Reports: None Oncologic Surgical History: Reports: None Dermatological Surgical History: Reports: None Social & Family History - Family History Family Medical History: Noncontributory - Tobacco Use Smoking Status *Q: Never Smoker Second Hand Smoke Exposure: No - Caffeine Use Caffeine Use: Reports: Energy Drinks - Alcohol Use Date of Last Drink: 06/04/18 - Recreational Drug Use Recreational Drug Use: Yes Drug Use in Last 12 Months: Yes Recreational Drug Type: Reports: Methamphetamine Recreational Drug Use Frequency: Not Used In Over 6 Months H&P Review of Systems - Review of Systems: Review Of Systems: See Below General: Denies: Fever, Chills, Malaise, Weakness, Fatigue, Night Sweats HEENT: Reports: No Symptoms Pulmonary: Denies: Shortness of Breath, Wheezing, Pleuritic Chest Pain Cardiovascular: Denies: Chest Pain, Palpitations Gastrointestinal: Reports: Flatus. Denies: Abdominal Pain, Anorexia, Decreased Appetite, Distension, Melena, Nausea, Vomiting Genitourinary: Reports: No Symptoms Musculoskeletal: Reports: No Symptoms Skin: Reports: Other (right buttock abscess) Psychiatric: Denies: Confusion, Depression, Mood Lability Neurological: Reports: No Symptoms Hematologic/Lymphatic: Reports: No Symptoms Immunologic: Reports: No Symptoms Exam - Exam Exam: See Below - Vital Signs Vital Signs: Last Vital Signs Temp 97.8 F 06/12/18 08:00 Pulse 75 06/12/18 08:00 Resp 16 06/12/18 08:00 BP 128/73 06/12/18 08:00 Pulse Ox 97 06/12/18 08:00 Weight: 223 lb 11.2 oz - Exam General: Alert, Oriented, Cooperative, Mild Distress HEENT: Conjunctiva Clear, EACs Clear, Pupils Equal, Pupils Reactive, Other ( abscess along the left mandible. Also now c/o left sided tooth pain) Neck: Supple, Trachea Midline Lungs: Clear to Auscultation, Normal Respiratory Effort Cardiovascular: Regular Rate, Regular Rhythm. No: Tachycardia GI/Abdominal Exam: Normal Bowel Sounds, Soft, Other (small area of cellulitis in LLQ. No apparent abscess.) (Male) Exam: Deferred Rectal (Males) Exam: Deferred Extremities: Normal Inspection, Normal Range of Motion, Non-Tender, No Pedal Edema, Normal Capillary Refill Skin: Warm, Dry, Intact, Other (right buttock abscess) Neurological: Cranial Nerves Intact, Reflexes Equal Bilateral Psychiatric: Alert, Normal Affect, Normal Mood - Patient Data Lab Results Last 24 hrs: Laboratory Results - last 24 hr 06/11/18 06/11/18 06/12/18 Range/Units 19:55 19:55 06:58 WBC 10.42 8.12 (4.0-11.0) K/uL RBC 4.03 L 3.98 L (4.50-5.90) M/uL Hgb 11.8 L 11.6 L (13.0-17.0) g/dL Hct 35.2 L 34.6 L (38.0-50.0) % MCV 87.3 86.9 (80.0-98.0) fL MCH 29.3 29.1 (27.0-32.0) pg MCHC 33.5 33.5 (31.0-37.0) g/dL RDW Std Deviation 42.9 43.3 (28.0-62.0) fl RDW Coeff of Kayla 13 14 (11.0-15.0) % Plt Count 241 220 (150-400) K/uL MPV 9.90 9.80 (7.40-12.00) fL Neut % (Auto) 64.7 (48.0-80.0) % Lymph % (Auto) 24.1 (16.0-40.0) % [place] % (Auto) 10.1 (0.0-15.0) % Eos % (Auto) 1.0 (0.0-7.0) % Baso % (Auto) 0.1 (0.0-1.5) % Neut # (Auto) 6.8 H (1.4-5.7) K/uL Lymph # (Auto) 2.5 H (0.6-2.4) K/uL [place] # (Auto) 1.1 H (0.0-0.8) K/uL Eos # (Auto) 0.1 (0.0-0.7) K/uL Baso # (Auto) 0.0 (0.0-0.1) K/uL Nucleated RBC % 0.0 0.0 /100WBC Nucleated RBCs # 0 0 K/uL Sodium 140 (136-148) mmol/L Potassium 3.6 (3.5-5.1) mmol/L Chloride 104 (98-107) mmol/L Carbon Dioxide 32.6 H (21.0-32.0) mmol/L BUN 9 (7.0-18.0) mg/dL Creatinine 0.8 (0.8-1.3) mg/dL Est Cr Clr Drug Dosing 111.53 mL/min Estimated GFR (MDRD) > 60.0 ml/min Glucose 118 H (74-106) mg/dL Calcium 8.6 (8.5-10.1) mg/dL Total Bilirubin 0.2 (0.2-1.0) mg/dL AST 49 H (15-37) IU/L ALT 79 H (14-63) IU/L Alkaline Phosphatase 71 (46-116) U/L Total Protein 6.7 (6.4-8.2) g/dL Albumin 3.1 L (3.4-5.0) g/dL Globulin 3.6 H (2.0-3.5) g/dL Albumin/Globulin Ratio 0.9 L (1.3-2.8) 06/12/18 Range/Units 06:58 WBC (4.0-11.0) K/uL RBC (4.50-5.90) M/uL Hgb (13.0-17.0) g/dL Hct (38.0-50.0) % MCV (80.0-98.0) fL MCH (27.0-32.0) pg MCHC (31.0-37.0) g/dL RDW Std Deviation (28.0-62.0) fl RDW Coeff of Kayla (11.0-15.0) % Plt Count (150-400) K/uL MPV (7.40-12.00) fL Neut % (Auto) (48.0-80.0) % Lymph % (Auto) (16.0-40.0) % [place] % (Auto) (0.0-15.0) % Eos % (Auto) (0.0-7.0) % Baso % (Auto) (0.0-1.5) % Neut # (Auto) (1.4-5.7) K/uL Lymph # (Auto) (0.6-2.4) K/uL [place] # (Auto) (0.0-0.8) K/uL Eos # (Auto) (0.0-0.7) K/uL Baso # (Auto) (0.0-0.1) K/uL Nucleated RBC % /100WBC Nucleated RBCs # K/uL Sodium 143 (136-148) mmol/L Potassium 3.9 (3.5-5.1) mmol/L Chloride 106 (98-107) mmol/L Carbon Dioxide 30.5 (21.0-32.0) mmol/L BUN 12 (7.0-18.0) mg/dL Creatinine 0.8 (0.8-1.3) mg/dL Est Cr Clr Drug Dosing 111.53 mL/min Estimated GFR (MDRD) > 60.0 ml/min Glucose 97 (74-106) mg/dL Calcium 8.0 L (8.5-10.1) mg/dL Total Bilirubin 0.3 (0.2-1.0) mg/dL AST 40 H (15-37) IU/L ALT 66 H (14-63) IU/L Alkaline Phosphatase 69 (46-116) U/L Total Protein 5.5 L (6.4-8.2) g/dL Albumin 2.5 L (3.4-5.0) g/dL Globulin 3.0 (2.0-3.5) g/dL Albumin/Globulin Ratio 0.8 L (1.3-2.8) Result Diagrams: 06/12/18 06:58 06/12/18 06:58 Consult PN Assessment/Plan Procedures: Procedures ASSAY OF BLOOD/URIC ACID (02/03/17) BLOOD CULTURE FOR BACTERIA (03/11/18) CARPAL TUNNEL SURGERY (07/09/17) COMPLETE CBC W/AUTO DIFF WBC (03/11/18) COMPREHEN METABOLIC PANEL (03/11/18) CT MAXILLOFACIAL W/DYE (03/11/18) DRAIN/INJ JOINT/BURSA W/O US (07/09/17) ELECTROCARDIOGRAM TRACING (03/11/18) EMERGENCY DEPT VISIT (03/11/18) EMERGENCY DEPT VISIT (07/21/17) HYDRATE IV INFUSION ADD-ON (03/11/18) LIPID PANEL (02/03/17) METABOLIC PANEL TOTAL CA (05/12/16) OT EVAL LOW COMPLEX 30 MIN (10/07/17) RBC SED RATE AUTOMATED (02/03/17) REVISE ULNAR NERVE AT ELBOW (07/09/17) ROUTINE VENIPUNCTURE (03/11/18) THER/PROPH/DIAG IV INF INIT (03/11/18) TX/PRO/DX INJ NEW DRUG ADDON (03/11/18) TX/PRO/DX INJ SAME DRUG RUBBER BALL [employer]ER (03/11/18) TX/PROPH/DG ADDL SEQ IV INF (03/11/18) X-RAY EXAM HIP UNI 2-3 VIEWS (12/19/15) X-RAY EXAM OF SHOULDER (07/02/17) (1) Abscess of buttock, right SNOMED Code(s): 73251332 Code(s): L02.31 - CUTANEOUS ABSCESS OF BUTTOCK Priority: High Current Visit: Yes (2) Cellulitis SNOMED Code(s): 574337407 Code(s): L03.90 - CELLULITIS, UNSPECIFIED Priority: High Current Visit: Yes Qualifiers: Site of cellulitis: buttock Qualified Code(s): L03.317 - Cellulitis of buttock (3) Facial abscess SNOMED Code(s): 019627590 Code(s): L02.01 - CUTANEOUS ABSCESS OF FACE Current Visit: Yes Problem List Initiated/Reviewed/Updated: Yes My Orders Last 24 Hours: My Active Orders 06/12/18 14:14 Antiembolic Devices [RC] PER UNIT ROUTINE 06/12/18 Dinner Nothing Per Oral Diet [DIET] 06/13/18 11:00 Skin Preparation [RC] .PREOP Plan: Incision and drainage of the right buttock abscess. The operative procedure, along with the risks, including, but not limited to bleeding, infection, pneumonia, DVT, PE and recurrence of the abscess reviewed with the patient. Question have been answered. Patient states he understands, offers no questions and wishes to proceed. He will be kept NPO after midnight in anticipation of surgery on 06/13. Also recommend ENT/Plastics consult for facial abscess. Thank you.
[2018-06-12] MEDS: oxyCODONE 5 MG Tab PO PRN (15:47)
[2018-06-12] MEDS ORDERED: HYDROmorphone 2 MG/ML SDV IVPUSH PRN (17:07)
[2018-06-12] MEDS: Enoxaparin 40 MG/0.4 ML Syringe SUBCUT SCH (21:01)
[2018-06-13] MEDS: Ketorolac 30 MG/ML SDV IVPUSH PRN (02:43)
[2018-06-13] MEDS: Piperacillin/Tazobactam 4.5 GM in Sodium Chloride 0.9% 100 ML IV SCH ×4 (03:56→21:38)
[2018-06-13] MEDS ORDERED: LORazepam 2 MG/ML SDV IV PRN (04:16)
[2018-06-13] MEDS: Omeprazole 20 MG Cap.CR PO SCH (06:31)
--- NOTE | 2018-06-13 06:54 | PCM.PREANE ---
Preanesthetic Assessment - Anesthesia/Transfusion/Family Hx Anesthesia History: Prior Anesthesia Without Reaction Family History of Anesthesia Reaction: No Transfusion History: No Prior Transfusion(s) Intubation History: Unknown - Review of Systems General: No Symptoms Pulmonary: No Symptoms Cardiovascular: No Symptoms Gastrointestinal: No Symptoms Neurological: No Symptoms Other: Reports: None - Physical Assessment NPO Status Date: 06/12/18 NPO Status Time: 21:00 O2 Sat by Pulse Oximetry: 94 Respiratory Rate: 18 Vital Signs: Last Vital Signs Temp 98 F 06/13/18 04:00 Pulse 85 06/13/18 04:00 Resp 18 06/13/18 04:00 BP 133/75 06/13/18 04:00 Pulse Ox 94 L 06/13/18 04:00 Height: 5 ft 10 in Weight: 101.469 kg ASA Class: 2 Mental Status: Alert & Oriented x3 Airway Class: Mallampati = 2 Dentition: Reports: Normal Dentition Thyro-Mental Finger Breadths: 3 Mouth Opening Finger Breadths: 3 ROM/Head Extension: Full Lungs: Clear to Auscultation, Normal Respiratory Effort Cardiovascular: Regular Rate, Regular Rhythm - Lab Values: Laboratory Last Values WBC 8.12 K/uL (4.0-11.0) 06/12/18 06:58 RBC 3.98 M/uL (4.50-5.90) L 06/12/18 06:58 Hgb 11.6 g/dL (13.0-17.0) L 06/12/18 06:58 Hct 34.6 % (38.0-50.0) L 06/12/18 06:58 MCV 86.9 fL (80.0-98.0) 06/12/18 06:58 MCH 29.1 pg (27.0-32.0) 06/12/18 06:58 MCHC 33.5 g/dL (31.0-37.0) 06/12/18 06:58 RDW Std Deviation 43.3 fl (28.0-62.0) 06/12/18 06:58 RDW Coeff of Kayla 14 % (11.0-15.0) 06/12/18 06:58 Plt Count 220 K/uL (150-400) 06/12/18 06:58 MPV 9.80 fL (7.40-12.00) 06/12/18 06:58 Neut % (Auto) 64.7 % (48.0-80.0) 06/11/18 19:55 Lymph % (Auto) 24.1 % (16.0-40.0) 06/11/18 19:55 [place] % (Auto) 10.1 % (0.0-15.0) 06/11/18 19:55 Eos % (Auto) 1.0 % (0.0-7.0) 06/11/18 19:55 Baso % (Auto) 0.1 % (0.0-1.5) 06/11/18 19:55 Neut # (Auto) 6.8 K/uL (1.4-5.7) H 06/11/18 19:55 Lymph # (Auto) 2.5 K/uL (0.6-2.4) H 06/11/18 19:55 [place] # (Auto) 1.1 K/uL (0.0-0.8) H 06/11/18 19:55 Eos # (Auto) 0.1 K/uL (0.0-0.7) 06/11/18 19:55 Baso # (Auto) 0.0 K/uL (0.0-0.1) 06/11/18 19:55 Nucleated RBC % 0.0 /100WBC 06/12/18 06:58 Nucleated RBCs # 0 K/uL 06/12/18 06:58 Sodium 143 mmol/L (136-148) 06/12/18 06:58 Potassium 3.9 mmol/L (3.5-5.1) 06/12/18 06:58 Chloride 106 mmol/L (98-107) 06/12/18 06:58 Carbon Dioxide 30.5 mmol/L (21.0-32.0) 06/12/18 06:58 BUN 12 mg/dL (7.0-18.0) 06/12/18 06:58 Creatinine 0.8 mg/dL (0.8-1.3) 06/12/18 06:58 Est Cr Clr Drug Dosing 111.53 mL/min 06/12/18 06:58 Estimated GFR (MDRD) > 60.0 ml/min 06/12/18 06:58 Glucose 97 mg/dL (74-106) 06/12/18 06:58 Calcium 8.0 mg/dL (8.5-10.1) L 06/12/18 06:58 Total Bilirubin 0.3 mg/dL (0.2-1.0) 06/12/18 06:58 AST 40 IU/L (15-37) H 06/12/18 06:58 ALT 66 IU/L (14-63) H 06/12/18 06:58 Alkaline Phosphatase 69 U/L (46-116) 06/12/18 06:58 Total Protein 5.5 g/dL (6.4-8.2) L 06/12/18 06:58 Albumin 2.5 g/dL (3.4-5.0) L 06/12/18 06:58 Globulin 3.0 g/dL (2.0-3.5) 06/12/18 06:58 Albumin/Globulin Ratio 0.8 (1.3-2.8) L 06/12/18 06:58 - Allergies Allergies/Adverse Reactions: Allergies Allergy/AdvReac Type Severity Reaction Status Date / Time No Known Allergies Allergy Verified 03/11/18 14:43 - Acknowledgements Anesthesia Type Planned: General Anesthesia Pt an Appropriate Candidate for the Planned Anesthesia: Yes Alternatives and Risks of Anesthesia Discussed w Pt/Guardian: Yes Pt/Guardian Understands and Agrees with Anesthesia Plan: Yes PreAnesthesia Questionnaire HEENT History: Reports: Other (See Below) Other HEENT History: uses reading glasses Cardiovascular History: Reports: None Respiratory History: Reports: None Gastrointestinal History: Reports: GERD, Hepatitis Other Gastrointestinal History: Hepatitis C Genitourinary History: Reports: None Musculoskeletal History: Reports: Back Pain, Chronic, Fracture Other Musculoskeletal History: hx of fx thumb Neurological History: Reports: Concussion Psychiatric History: Reports: PTSD Endocrine/Metabolic History: Reports: None Hematologic History: Reports: None Immunologic History: Reports: None Oncologic (Cancer) History: Reports: None Dermatologic History: Reports: None - Infectious Disease History Infectious Disease History: Reports: Hepatitis C - Past Surgical History Head Surgeries/Procedures: Reports: None HEENT Surgical History: Reports: Tonsillectomy, Other (See Below) Other HEENT Surgeries/Procedures: closed reduction fx nose, hx of Laryngoscopy with polyp removal Cardiovascular Surgical History: Reports: None Respiratory Surgical History: Reports: None GI Surgical History: Reports: None Male Surgical History: Reports: None Endocrine Surgical History: Reports: None Neurological Surgical History: Reports: None Musculoskeletal Surgical History: Reports: None Oncologic Surgical History: Reports: None Dermatological Surgical History: Reports: None - SUBSTANCE USE Smoking Status *Q: Never Smoker Tobacco Use Within Last Twelve Months: No Second Hand Smoke Exposure: No Date of Last Drink: 06/04/18 Recreational Drug Use History: Yes Recreational Drug Type: Reports: Methamphetamine (Pt claims last use was 6 months) - HOME MEDS Home Medications: Home Meds Gabapentin [Neurontin] 300 mg PO DAILY 07/21/17 [History] Omeprazole 20 mg PO DAILY 06/11/18 [History] - CURRENT (IN HOUSE) MEDS Current Meds: Current Medications Acetaminophen (Tylenol) 650 mg PO Q4H PRN PRN Reason: Pain (Mild 1-3)/fever Albuterol/Ipratropium (Duoneb 3.0-0.5 Mg/3 Ml) 3 ml NEB Q4HRRT PRN PRN Reason: Shortness Of Breath/wheezing Enoxaparin Sodium (Lovenox) 40 mg SUBCUT Q24H [facility] Last Admin: 06/12/18 21:01 Dose: 40 mg Gabapentin (Neurontin) 300 mg PO DAILY [facility] Last Admin: 06/12/18 08:54 Dose: 300 mg Hydromorphone HCl (Dilaudid) 1 mg IVPUSH Q3H PRN PRN Reason: Pain Last Admin: 06/12/18 21:19 Dose: 1 mg Lactated Ringer's (Ringers, Lactated) 1,000 mls @ 125 mls/hr IV ASDIRECTED [facility] Last Admin: 06/12/18 21:22 Dose: 125 mls/hr Piperacillin Sod/Tazobactam (Sod 4.5 gm/ Sodium Chloride) 100 mls @ 200 mls/hr IV Q6H [facility] Last Admin: 06/13/18 03:56 Dose: 200 mls/hr Vancomycin HCl 1,250 mg/ (Sodium Chloride) 250 mls @ 166.667 mls/hr IV Q8H [facility] Last Admin: 06/12/18 23:44 Dose: 166.667 mls/hr Ketorolac Tromethamine (Toradol) 30 mg IVPUSH Q6H PRN PRN Reason: Headache Stop: 06/17/18 00:28 Last Admin: 06/13/18 02:43 Dose: 30 mg Lorazepam (Ativan) 2 mg IV Q4H PRN PRN Reason: Anxiety Last Admin: 06/13/18 04:37 Dose: 2 mg Omeprazole (Omeprazole) 20 mg PO ACBREAKFAST [facility] Last Admin: 06/13/18 06:31 Dose: Not Given Ondansetron HCl (Zofran) 4 mg IVPUSH Q4H PRN PRN Reason: Nausea Oxycodone HCl (Oxycodone) 5 mg PO Q4H PRN PRN Reason: Pain (moderate 4-6) Last Admin: 06/12/18 15:47 Dose: 5 mg Sodium Chloride (Saline Flush) 10 ml FLUSH ASDIRECTED PRN PRN Reason: Keep Vein Open Sodium Chloride (Saline Flush) 2.5 ml FLUSH ASDIRECTED PRN PRN Reason: Keep Vein Open Vancomycin HCl (Pharmacy To Dose - Vancomycin) 0 dose .XX ASDIRECTED [facility] Discontinued Medications Sodium Chloride (Normal Saline) 1,000 mls @ 999 mls/hr IV STAT ONE Stop: 06/11/18 20:42 Last Admin: 06/11/18 20:10 Dose: 999 mls/hr Vancomycin HCl 1 gm/ Sodium (Chloride) 250 mls @ 250 mls/hr IV ONETIME ONE Stop: 06/11/18 20:41 Last Admin: 06/11/18 20:09 Dose: 250 mls/hr Lidocaine HCl (Xylocaine-Mpf 1%) Confirm Administered Dose 5 mls @ as directed .ROUTE .STK-MED ONE Stop: 06/11/18 20:01 Last Admin: 06/11/18 20:12 Dose: 1 mls/hr Piperacillin Sod/Tazobactam (Sod 4.5 gm/ Sodium Chloride) 100 mls @ 200 mls/hr IV Q6H [facility] Last Admin: 06/12/18 04:47 Dose: 200 mls/hr Vancomycin HCl 1,250 mg/ (Dextrose/Water) 250 mls @ 166.667 mls/hr IV Q12H [facility] Last Admin: 06/12/18 09:15 Dose: Not Given Iopamidol (Isovue Multipack-370 (76%)) 75 ml IVPUSH ONETIME STA Stop: 06/11/18 21:44 Last Admin: 06/11/18 21:43 Dose: 75 ml Morphine Sulfate (Morphine) 2 mg IVPUSH Q2H PRN PRN Reason: Pain (severe 7-10) Stop: 06/12/18 21:47 Last Admin: 06/12/18 16:23 Dose: 2 mg
[2018-06-13] MEDS: Lactated Ringers 1,000 ML IV SCH (08:16)
[2018-06-13] MEDS: Gabapentin 300 MG Cap PO SCH (08:20)
[2018-06-13 08:52] LABS: CHLORIDE,CL 100 mmol/L (98-107); SODIUM,NA 135 mmol/L (136-148)
--- NOTE | 2018-06-13 14:06 | CT ---
EXAM DATE: 06/13/18 PATIENT'S AGE: 52 Patient: BRANDON SUN Facility: [place], [place] Site . Site : 1965 Study: CT Facial [id number]/25/2018 9:41:10 PM Ordering Physician: Marcus Dudley Final Report: Indication: Pain. 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 Technique: Multiple contiguous axial images were obtained through the level of the facial bones. Coronal and sagittal reformatted images were obtained. Please note that all CT scans at this facility use dose modulation, iterative reconstruction, and/or weight-based dosing when appropriate to reduce radiation dose to as low as reasonably achievable. Comparison: None Findings: Minimal mucosal thickening is identified in the left maxillary sinus. The remainder of the visualized paranasal sinuses are clear. The mastoid air cells are clear. The temporomandibular joints are located. The pterygoid plates are intact. The nasal bones are intact. The nasal septum is essentially midline. The bony orbits are intact. Images of the upper cervical spine are grossly normal. At the level of the left mandible skin thickening is identified. Air is identified within the subcutaneous tissues. This most likely represents a small abscess. This measures approximately 16 x 14 millimeters in size. There is associated skin thickening. Mild fat stranding is identified in this region. Impression: Probable superficial abscess identified at the level of the left mandible. There is no evidence of bony erosion or osteomyelitis of the mandible at this region. Left maxillary sinus disease. Please note that all CT scans at this facility use dose modulation, iterative reconstruction, and/or weight-based dosing when appropriate to reduce radiation dose to as low as reasonably achievable. Dictated by Amelia Jimenez MD @ Jun 11 2018 9:46PM (Electronic Signature) Report Signed by Proxy. MALIA
[2018-06-13] MEDS ORDERED: Ondansetron 4 MG/2 ML SDV ONE (14:28)
[2018-06-13] MEDS ORDERED: Propofol 200 MG/20 ML SDV ONE (14:28)
[2018-06-13] MEDS ORDERED: fentaNYL 100 MCG/2 ML SDV ONE (14:28)
[2018-06-13] MEDS ORDERED: Midazolam 1 MG/ML 2 ML SDV ONE (14:28)
[2018-06-13] MEDS ORDERED: Rocuronium 10 MG/ML 10 ML Syringe ONE (14:29)
[2018-06-13] MEDS ORDERED: Glycopyrrolate 0.2 MG/ML SDV ONE (14:29)
[2018-06-13] MEDS ORDERED: Ketorolac 30 MG/ML SDV ONE (14:29)
[2018-06-13] MEDS ORDERED: Sugammadex Sodium 200 MG/2 ML VIAL ONE (14:36)
[2018-06-13] MEDS ORDERED: Morphine 10 MG/ML Syringe ONE (14:59)
[2018-06-13] MEDS ORDERED: Acetaminophen/HYDROcodone 325-5 MG Tab PO PRN (15:23)
[2018-06-13] MEDS ORDERED: Morphine 10 MG/ML Syringe IVPUSH PRN (15:23)
--- NOTE | 2018-06-13 15:25 | PCM.OPNOTE ---
- General Post-Op/Procedure Note Date of Surgery/Procedure: 06/13/18 Operative Procedure(s): Incision and drainage right buttock abscess Pre Op Diagnosis: Right buttock abscess Post-Op Diagnosis: Same Anesthesia Technique: General ET Tube (ASA II) Primary Surgeon: Jeet Azevedo Fluid Replacement, Intraop: 500 EBL in mLs: 5 Condition: Good Free Text/Narrative:: Intake & Output 06/13/18 06/13/18 06/13/18 03:59 11:59 19:59 Intake Total 350 400 Output Total 1680 Balance 350 -1280 DICTATION 545210 CPT CODE 90046
--- NOTE | 2018-06-13 15:45 | PCM.POSTAN ---
POST ANESTHESIA ASSESSMENT - MENTAL STATUS Mental Status: Alert - VITAL SIGNS Pulse Rate: 86 SaO2: 95 Resp Rate: 20 Blood Pressure: 122/76 Temperature: 36.6 C - RESPIRATORY Respiratory Status: Respiratory Rate WNL - CARDIOVASCULAR CV Status: Pulse Rate WNL - GASTROINTESTINAL GI Status: No Symptoms - PAIN Pain Score: 1 - POST OP HYDRATION Hydration Status: Adequate & Stable - OBSERVATIONS Free Text/Narrative:: Doing well. Ready to return to the floor.
--- NOTE | 2018-06-13 17:28 | OR ---
SURGEON: Jeet Azevedo M.D. DATE OF PROCEDURE: 06/13/2018 OPERATION PERFORMED: Incision and drainage, right buttock abscess. ANESTHESIA: General endotracheal. ASA CLASSIFICATION: 2. PREOPERATIVE DIAGNOSIS: Right buttock abscess. POSTOPERATIVE DIAGNOSIS: Right buttock abscess. ESTIMATED BLOOD LOSS: 5 mL. INTRAOPERATIVE FLUID REPLACEMENT: 500 mL of crystalloid. DESCRIPTION OF PROCEDURE: The patient was taken to the operating room and kept on the transfer cart in the supine position. Time-out was called for appropriate identification of the patient and the procedure. Following satisfactory attainment of general endotracheal anesthesia, the patient was placed on the operating table in the prone position with care taken to pad all bony prominences. The buttock was taped apart and the skin prepped with Betadine solution. Sterile drapes were applied. The skin incision was made directly over the right buttock abscess. There was minimal purulent drainage. Aerobic and anaerobic cultures were obtained and sent for culture, sensitivity, and Gram stain. The wound was digitally explored and all loculations were broken up. The wound was then irrigated with several 100 mL of sterile saline solution. Again, no significant purulent drainage was noted. Hemostasis was obtained with the use of electrocautery. A 0.5 inch Joslyn drain was then placed into the wound and secured to the skin with a 2-0 nylon suture. The wound was then dressed with fluffs and an ABD, taped in place. Sponge, needle, and instrument counts were all correct. The patient was placed back on the transfer cart in the supine position. Following emergence from anesthesia and extubation, he was taken to recovery room in stable condition. LORETTA / TRINITY /[id number]
--- NOTE | 2018-06-13 20:12 | PCM.PN ---
- General Info Date of Service: 06/13/18 Admission Dx/Problem (Free Text): Admission Diagnosis/Problem Admission Diagnosis/Problem Cellulites and abscess Subjective Update: feeling better today , had I and d left buttock. Dr. Bergman ,plastic surgeon was called and she said she will see patient in the afternoon - Review of Systems General: Reports: No Symptoms HEENT: Reports: No Symptoms, Contact Lenses, Dysphasia, Ear Pain, Eye Pain Pulmonary: Reports: No Symptoms, Shortness of Breath, Pleuritic Chest Pain Cardiovascular: Reports: No Symptoms Gastrointestinal: Reports: No Symptoms Genitourinary: Reports: No Symptoms Musculoskeletal: Reports: No Symptoms Skin: Reports: No Symptoms Neurological: Reports: No Symptoms - Patient Data Vitals - Most Recent: Last Vital Signs Temp 98.6 F 06/13/18 16:00 Pulse 87 06/13/18 16:00 Resp 17 06/13/18 16:00 BP 128/79 06/13/18 16:00 Pulse Ox 90 L 06/13/18 16:00 Weight - Most Recent: 223 lb 11.2 oz I&O - Last 24 Hours: Intake & Output 06/13/18 06/13/18 06/13/18 06:59 14:59 22:59 Intake Total 650 1200 Output Total 1680 Balance -1030 1200 Lab Results Last 24 Hours: Laboratory Results - last 24 hr 06/13/18 06/13/18 06/13/18 Range/Units 08:16 08:16 08:16 WBC 11.70 H (4.0-11.0) K/uL RBC 4.08 L (4.50-5.90) M/uL Hgb 11.7 L (13.0-17.0) g/dL Hct 34.9 L (38.0-50.0) % MCV 85.5 (80.0-98.0) fL MCH 28.7 (27.0-32.0) pg MCHC 33.5 (31.0-37.0) g/dL RDW Std Deviation 41.8 (28.0-62.0) fl RDW Coeff of Kayla 13 (11.0-15.0) % Plt Count 215 (150-400) K/uL MPV 9.60 (7.40-12.00) fL Nucleated RBC % 0.0 /100WBC Nucleated RBCs # 0 K/uL Sodium 135 L (136-148) mmol/L Potassium 4.0 (3.5-5.1) mmol/L Chloride 100 (98-107) mmol/L Carbon Dioxide 31.8 (21.0-32.0) mmol/L BUN 13 (7.0-18.0) mg/dL Creatinine 0.8 (0.8-1.3) mg/dL Est Cr Clr Drug Dosing 111.53 mL/min Estimated GFR (MDRD) > 60.0 ml/min Glucose 101 (74-106) mg/dL Calcium 8.6 (8.5-10.1) mg/dL Total Bilirubin 0.6 (0.2-1.0) mg/dL AST 36 (15-37) IU/L ALT 65 H (14-63) IU/L Alkaline Phosphatase 61 (46-116) U/L Total Protein 6.6 (6.4-8.2) g/dL Albumin 3.0 L (3.4-5.0) g/dL Globulin 3.6 H (2.0-3.5) g/dL Albumin/Globulin Ratio 0.8 L (1.3-2.8) Vancomycin Trough 11.0 H (5.0-10.0) ug/mL Josue Results Last 24 Hours: Microbiology 06/13/18 15:30 Gram Stain - Preliminary Buttock, Right 06/11/18 20:05 Aerobic Blood Culture - Preliminary Blood - Venous - Lab Draw NO GROWTH AFTER 1 DAY Anaerobic Blood Culture - Preliminary NO GROWTH AFTER 1 DAY 06/11/18 19:55 Aerobic Blood Culture - Preliminary Blood - Venous NO GROWTH AFTER 1 DAY Anaerobic Blood Culture - Preliminary NO GROWTH AFTER 1 DAY Med Orders - Current: Current Medications Acetaminophen (Tylenol) 650 mg PO Q4H PRN PRN Reason: Pain (Mild 1-3)/fever Hydrocodone Bitart/Acetaminophen ([place] 325-5 Mg) 1 - 2 tab PO Q4H PRN PRN Reason: Pain (moderate 4-6) Albuterol/Ipratropium (Duoneb 3.0-0.5 Mg/3 Ml) 3 ml NEB Q4HRRT PRN PRN Reason: Shortness Of Breath/wheezing Enoxaparin Sodium (Lovenox) 40 mg SUBCUT Q24H [facility] Last Admin: 06/12/18 21:01 Dose: 40 mg Gabapentin (Neurontin) 300 mg PO DAILY [facility] Last Admin: 06/13/18 08:20 Dose: Not Given Hydromorphone HCl (Dilaudid) 1 mg IVPUSH Q3H PRN PRN Reason: Pain Last Admin: 06/12/18 21:19 Dose: 1 mg Piperacillin Sod/Tazobactam (Sod 4.5 gm/ Sodium Chloride) 100 mls @ 200 mls/hr IV Q6H [facility] Last Admin: 06/13/18 16:22 Dose: 200 mls/hr Vancomycin HCl 1,250 mg/ (Sodium Chloride) 250 mls @ 166.667 mls/hr IV Q8H [facility] Last Admin: 06/13/18 17:30 Dose: 166.667 mls/hr Ketorolac Tromethamine (Toradol) 30 mg IVPUSH Q6H PRN PRN Reason: Headache Stop: 06/17/18 00:28 Last Admin: 06/13/18 02:43 Dose: 30 mg Lorazepam (Ativan) 2 mg IV Q4H PRN PRN Reason: Anxiety Last Admin: 06/13/18 04:37 Dose: 2 mg Morphine Sulfate (Morphine) 1 - 5 mg IVPUSH Q30M PRN PRN Reason: Pain (severe 7-10) Omeprazole (Omeprazole) 20 mg PO ACBREAKFAST [facility] Last Admin: 06/13/18 06:31 Dose: Not Given Ondansetron HCl (Zofran) 4 mg IVPUSH Q4H PRN PRN Reason: Nausea Oxycodone HCl (Oxycodone) 5 mg PO Q4H PRN PRN Reason: Pain (moderate 4-6) Last Admin: 06/12/18 15:47 Dose: 5 mg Sodium Chloride (Saline Flush) 10 ml FLUSH ASDIRECTED PRN PRN Reason: Keep Vein Open Sodium Chloride (Saline Flush) 2.5 ml FLUSH ASDIRECTED PRN PRN Reason: Keep Vein Open Vancomycin HCl (Pharmacy To Dose - Vancomycin) 0 dose .XX ASDIRECTED [facility] Discontinued Medications Fentanyl (Sublimaze) Confirm Administered Dose 100 mcg .ROUTE .STK-MED ONE Stop: 06/13/18 14:29 Glycopyrrolate (Robinul) Confirm Administered Dose 0.2 mg .ROUTE .STK-MED ONE Stop: 06/13/18 14:30 Sodium Chloride (Normal Saline) 1,000 mls @ 999 mls/hr IV STAT ONE Stop: 06/11/18 20:42 Last Admin: 06/11/18 20:10 Dose: 999 mls/hr Vancomycin HCl 1 gm/ Sodium (Chloride) 250 mls @ 250 mls/hr IV ONETIME ONE Stop: 06/11/18 20:41 Last Admin: 06/11/18 20:09 Dose: 250 mls/hr Lidocaine HCl (Xylocaine-Mpf 1%) Confirm Administered Dose 5 mls @ as directed .ROUTE .STK-MED ONE Stop: 06/11/18 20:01 Last Admin: 06/11/18 20:12 Dose: 1 mls/hr Lactated Ringer's (Ringers, Lactated) 1,000 mls @ 125 mls/hr IV ASDIRECTED [facility] Last Admin: 06/13/18 08:16 Dose: 125 mls/hr Piperacillin Sod/Tazobactam (Sod 4.5 gm/ Sodium Chloride) 100 mls @ 200 mls/hr IV Q6H [facility] Last Admin: 06/12/18 04:47 Dose: 200 mls/hr Vancomycin HCl 1,250 mg/ (Dextrose/Water) 250 mls @ 166.667 mls/hr IV Q12H [facility] Last Admin: 06/12/18 09:15 Dose: Not Given Lidocaine HCl (Xylocaine-Mpf 1%) Confirm Administered Dose 5 mls @ as directed .ROUTE .STK-MED ONE Stop: 06/13/18 14:29 Iopamidol (Isovue Multipack-370 (76%)) 75 ml IVPUSH ONETIME STA Stop: 06/11/18 21:44 Last Admin: 06/11/18 21:43 Dose: 75 ml Ketorolac Tromethamine (Toradol) Confirm Administered Dose 30 mg .ROUTE .STK- MED ONE Stop: 06/13/18 14:30 Midazolam HCl (Versed 1 Mg/Ml) Confirm Administered Dose 2 mg .ROUTE .STK-MED ONE Stop: 06/13/18 14:29 Morphine Sulfate (Morphine) 2 mg IVPUSH Q2H PRN PRN Reason: Pain (severe 7-10) Stop: 06/12/18 21:47 Last Admin: 06/12/18 16:23 Dose: 2 mg Morphine Sulfate (Morphine) Confirm Administered Dose 10 mg .ROUTE .STK-MED ONE Stop: 06/13/18 15:00 Ondansetron HCl (Zofran) Confirm Administered Dose 4 mg .ROUTE .STK-MED ONE Stop: 06/13/18 14:29 Propofol (Diprivan 20 Ml) Confirm Administered Dose 400 mg .ROUTE .STK-MED ONE Stop: 06/13/18 14:29 Rocuronium [place] (Zemuron) Confirm Administered Dose 100 mg .ROUTE .STK-MED ONE Stop: 06/13/18 14:30 Sugammadex Sodium ([place]) Confirm Administered Dose 200 mg .ROUTE .STK-MED ONE Stop: 06/13/18 14:37 - Exam General: Alert, Oriented HEENT: Pupils Equal, Pupils Reactive Neck: Supple, Trachea Midline, No JVD, No Thyromegaly Lungs: Clear to Auscultation, Normal Respiratory Effort Cardiovascular: Regular Rate, Regular Rhythm, No Murmurs GI/Abdominal Exam: Normal Bowel Sounds, Soft, Non-Tender, No Organomegaly Back Exam: Normal Inspection Extremities: Normal Inspection, Normal Range of Motion, Non-Tender, No Pedal Edema Skin: Warm, Dry, Other ( abcess on the face draining yellow moore pus, left buttock abcess) Wound/Incisions: Healing Well Neurological: No New Focal Deficit Psy/Mental Status: Alert, Normal Affect - Problem List & Annotations (1) Furuncle of face SNOMED Code(s): 59505099 Code(s): L02.02 - FURUNCLE OF FACE Status: Acute Current Visit: Yes (2) Furuncle of buttock SNOMED Code(s): 32025486 Code(s): L02.32 - FURUNCLE OF BUTTOCK Status: Acute Current Visit: Yes (3) Cellulitis SNOMED Code(s): 120997114 Code(s): L03.90 - CELLULITIS, UNSPECIFIED Status: Acute Current Visit: Yes - Problem List Review Problem List Initiated/Reviewed/Updated: Yes - My Orders Last 24 Hours: My Active Orders 06/13/18 04:16 LORazepam [Ativan] 2 mg IV Q4H PRN 06/13/18 07:36 Patient Status [ADT] Routine 06/14/18 05:11 CBC W/O DIFF,HEMOGRAM [HEME] AM COMPREHENSIVE METABOLIC PN,CMP [CHEM] AM 06/15/18 05:11 CBC W/O DIFF,HEMOGRAM [HEME] AM COMPREHENSIVE METABOLIC PN,CMP [CHEM] AM 06/15/18 07:30 VANCOMYCIN TROUGH [CHEM] Routine - Plan Plan:: Continue IV vancomycin, pharmacy to dose and IV Zosyn 4.5 g every 6 hours, then follow-up blood cultures - negative day 2 , and wound cultures gram positive cocci in clusters and in pairs . For incision and drainage today, packing from I and D from the face was removed , Plastic surgery consult was called and follow-up surgery consult. Patient should have Bactroban gel intranasaly for 5 days and chlorhexidine soap to bath, to decolonize him for MRSA and also she should avoid shaving. For DVT prophylaxis Lovenox 40 mg subcutaneous every 24 hours. For pain patient will be given oxycodone 5 mg by mouth every 6 hours when necessary for pain
[2018-06-13] MEDS: Enoxaparin 40 MG/0.4 ML Syringe SUBCUT SCH (21:40)
[2018-06-14] MEDS: Ketorolac 30 MG/ML SDV IVPUSH PRN (02:14)
[2018-06-14] MEDS: Piperacillin/Tazobactam 4.5 GM in Sodium Chloride 0.9% 100 ML IV SCH ×4 (04:25→21:59)
[2018-06-14 05:51] LABS: CHLORIDE,CL 103 mmol/L (98-107); SODIUM,NA 135 mmol/L (136-148)
--- NOTE | 2018-06-14 06:31 | PCM48HPAN ---
Post Anesthesia Note - EVALUATION WITHIN 48HRS OF ANESTHETIC Vital Signs in Normal Range: Yes Patient Participated in Evaluation: Yes Respiratory Function Stable: Yes Airway Patent: Yes Cardiovascular Function Stable: Yes Hydration Status Stable: Yes Pain Control Satisfactory: Yes (Toradol X1 during night.) Nausea and Vomiting Control Satisfactory: Yes Mental Status Recovered: Yes Pulse Rate: 76 SaO2: 93 Resp Rate: 17 Temperature: 36.6 C Blood Pressure: 103/55 Pulse Rate: 76 - COMMENTS/OBSERVATIONS Free Text/Narrative:: Doing well. No problems noted.
[2018-06-14] MEDS: Omeprazole 20 MG Cap.CR PO SCH (06:46)
[2018-06-14] MEDS: Gabapentin 300 MG Cap PO SCH (08:20)
[2018-06-14] MEDS: oxyCODONE 5 MG Tab PO PRN ×2 (08:20→16:15)
--- NOTE | 2018-06-14 08:55 | PCM.SN ---
- Free Text/Narrative Note: Patient has had a good night. Minimal discomfort. Afebrile. VSS. Minimal drainage. If patient is discharged today, I would like to see him in the office tomorrow to remove the Joslyn drain.
--- NOTE | 2018-06-14 13:08 | PCM.PN ---
- General Info Date of Service: 06/14/18 Subjective Update: Patient still has pain and swelling left cheek . Unable to smile . No fever , overall improving with iv antibiotics. - Review of Systems General: Reports: No Symptoms HEENT: Reports: Other (pain in the left cheek, swelling and erythema) Pulmonary: Reports: No Symptoms Cardiovascular: Reports: No Symptoms Gastrointestinal: Reports: No Symptoms Genitourinary: Reports: No Symptoms Musculoskeletal: Reports: No Symptoms Skin: Reports: No Symptoms Neurological: Reports: No Symptoms Psychiatric: Reports: No Symptoms - Patient Data Vitals - Most Recent: Last Vital Signs Temp 97.8 F 06/14/18 07:35 Pulse 78 06/14/18 07:35 Resp 16 06/14/18 07:35 BP 137/49 L 06/14/18 07:35 Pulse Ox 96 06/14/18 07:35 Weight - Most Recent: 223 lb 11.2 oz I&O - Last 24 Hours: Intake & Output 06/13/18 06/14/18 06/14/18 22:59 06:59 14:59 Intake Total 1200 1150 250 Balance 1200 1150 250 Lab Results Last 24 Hours: Laboratory Results - last 24 hr 06/14/18 06/14/18 Range/Units 05:20 05:20 WBC 8.15 (4.0-11.0) K/uL RBC 4.12 L (4.50-5.90) M/uL Hgb 11.9 L (13.0-17.0) g/dL Hct 35.4 L (38.0-50.0) % MCV 85.9 (80.0-98.0) fL MCH 28.9 (27.0-32.0) pg MCHC 33.6 (31.0-37.0) g/dL RDW Std Deviation 42.0 (28.0-62.0) fl RDW Coeff of Kayla 14 (11.0-15.0) % Plt Count 226 (150-400) K/uL MPV 9.80 (7.40-12.00) fL Nucleated RBC % 0.0 /100WBC Nucleated RBCs # 0 K/uL Sodium 135 L (136-148) mmol/L Potassium 3.9 (3.5-5.1) mmol/L Chloride 103 (98-107) mmol/L Carbon Dioxide 30.2 (21.0-32.0) mmol/L BUN 17 (7.0-18.0) mg/dL Creatinine 0.8 (0.8-1.3) mg/dL Est Cr Clr Drug Dosing 111.53 mL/min Estimated GFR (MDRD) > 60.0 ml/min Glucose 108 H (74-106) mg/dL Calcium 8.1 L (8.5-10.1) mg/dL Total Bilirubin 0.4 (0.2-1.0) mg/dL AST 39 H (15-37) IU/L ALT 64 H (14-63) IU/L Alkaline Phosphatase 64 (46-116) U/L Total Protein 6.3 L (6.4-8.2) g/dL Albumin 2.6 L (3.4-5.0) g/dL Globulin 3.7 H (2.0-3.5) g/dL Albumin/Globulin Ratio 0.7 L (1.3-2.8) Josue Results Last 24 Hours: Microbiology 06/13/18 15:30 Gram Stain - Preliminary Buttock, Right Wound Culture - Preliminary 06/11/18 20:05 Aerobic Blood Culture - Preliminary Blood - Venous - Lab Draw NO GROWTH AFTER 2 DAYS Anaerobic Blood Culture - Preliminary NO GROWTH AFTER 2 DAYS 06/11/18 19:55 Aerobic Blood Culture - Preliminary Blood - Venous NO GROWTH AFTER 2 DAYS Anaerobic Blood Culture - Preliminary NO GROWTH AFTER 2 DAYS Med Orders - Current: Current Medications Acetaminophen (Tylenol) 650 mg PO Q4H PRN PRN Reason: Pain (Mild 1-3)/fever Hydrocodone Bitart/Acetaminophen ([place] 325-5 Mg) 1 - 2 tab PO Q4H PRN PRN Reason: Pain (moderate 4-6) Albuterol/Ipratropium (Duoneb 3.0-0.5 Mg/3 Ml) 3 ml NEB Q4HRRT PRN PRN Reason: Shortness Of Breath/wheezing Enoxaparin Sodium (Lovenox) 40 mg SUBCUT Q24H JC Last Admin: 06/13/18 21:40 Dose: 40 mg Gabapentin (Neurontin) 300 mg PO DAILY JC Last Admin: 06/14/18 08:20 Dose: 300 mg Hydromorphone HCl (Dilaudid) 1 mg IVPUSH Q3H PRN PRN Reason: Pain Last Admin: 06/12/18 21:19 Dose: 1 mg Piperacillin Sod/Tazobactam (Sod 4.5 gm/ Sodium Chloride) 100 mls @ 200 mls/hr IV Q6H [facility] Last Admin: 06/14/18 10:24 Dose: 200 mls/hr Vancomycin HCl 1,250 mg/ (Sodium Chloride) 250 mls @ 166.667 mls/hr IV Q8H [facility] Last Admin: 06/14/18 08:20 Dose: 166.667 mls/hr Ketorolac Tromethamine (Toradol) 30 mg IVPUSH Q6H PRN PRN Reason: Headache Stop: 06/17/18 00:28 Last Admin: 06/14/18 02:14 Dose: 30 mg Lorazepam (Ativan) 2 mg IV Q4H PRN PRN Reason: Anxiety Last Admin: 06/13/18 04:37 Dose: 2 mg Morphine Sulfate (Morphine) 1 - 5 mg IVPUSH Q30M PRN PRN Reason: Pain (severe 7-10) Omeprazole (Omeprazole) 20 mg PO ACBREAKFAST [facility] Last Admin: 06/14/18 06:46 Dose: 20 mg Ondansetron HCl (Zofran) 4 mg IVPUSH Q4H PRN PRN Reason: Nausea Oxycodone HCl (Oxycodone) 5 mg PO Q4H PRN PRN Reason: Pain (moderate 4-6) Last Admin: 06/14/18 08:20 Dose: 5 mg Sodium Chloride (Saline Flush) 10 ml FLUSH ASDIRECTED PRN PRN Reason: Keep Vein Open Sodium Chloride (Saline Flush) 2.5 ml FLUSH ASDIRECTED PRN PRN Reason: Keep Vein Open Vancomycin HCl (Pharmacy To Dose - Vancomycin) 0 dose .XX ASDIRECTED [facility] Discontinued Medications Fentanyl (Sublimaze) Confirm Administered Dose 100 mcg .ROUTE .STK-MED ONE Stop: 06/13/18 14:29 Glycopyrrolate (Robinul) Confirm Administered Dose 0.2 mg .ROUTE .STK-MED ONE Stop: 06/13/18 14:30 Sodium Chloride (Normal Saline) 1,000 mls @ 999 mls/hr IV STAT ONE Stop: 06/11/18 20:42 Last Admin: 06/11/18 20:10 Dose: 999 mls/hr Vancomycin HCl 1 gm/ Sodium (Chloride) 250 mls @ 250 mls/hr IV ONETIME ONE Stop: 06/11/18 20:41 Last Admin: 06/11/18 20:09 Dose: 250 mls/hr Lidocaine HCl (Xylocaine-Mpf 1%) Confirm Administered Dose 5 mls @ as directed .ROUTE .STK-MED ONE Stop: 06/11/18 20:01 Last Admin: 06/11/18 20:12 Dose: 1 mls/hr Lactated Ringer's (Ringers, Lactated) 1,000 mls @ 125 mls/hr IV ASDIRECTED [facility] Last Admin: 06/13/18 08:16 Dose: 125 mls/hr Piperacillin Sod/Tazobactam (Sod 4.5 gm/ Sodium Chloride) 100 mls @ 200 mls/hr IV Q6H [facility] Last Admin: 06/12/18 04:47 Dose: 200 mls/hr Vancomycin HCl 1,250 mg/ (Dextrose/Water) 250 mls @ 166.667 mls/hr IV Q12H [facility] Last Admin: 06/12/18 09:15 Dose: Not Given Lidocaine HCl (Xylocaine-Mpf 1%) Confirm Administered Dose 5 mls @ as directed .ROUTE .STK-MED ONE Stop: 06/13/18 14:29 Iopamidol (Isovue Multipack-370 (76%)) 75 ml IVPUSH ONETIME STA Stop: 06/11/18 21:44 Last Admin: 06/11/18 21:43 Dose: 75 ml Ketorolac Tromethamine (Toradol) Confirm Administered Dose 30 mg .ROUTE .STK- MED ONE Stop: 06/13/18 14:30 Midazolam HCl (Versed 1 Mg/Ml) Confirm Administered Dose 2 mg .ROUTE .STK-MED ONE Stop: 06/13/18 14:29 Morphine Sulfate (Morphine) 2 mg IVPUSH Q2H PRN PRN Reason: Pain (severe 7-10) Stop: 06/12/18 21:47 Last Admin: 06/12/18 16:23 Dose: 2 mg Morphine Sulfate (Morphine) Confirm Administered Dose 10 mg .ROUTE .STK-MED ONE Stop: 06/13/18 15:00 Ondansetron HCl (Zofran) Confirm Administered Dose 4 mg .ROUTE .STK-MED ONE Stop: 06/13/18 14:29 Propofol (Diprivan 20 Ml) Confirm Administered Dose 400 mg .ROUTE .STK-MED ONE Stop: 06/13/18 14:29 Rocuronium [place] (Zemuron) Confirm Administered Dose 100 mg .ROUTE .STK-MED ONE Stop: 06/13/18 14:30 Sugammadex Sodium ([place]) Confirm Administered Dose 200 mg .ROUTE .STK-MED ONE Stop: 06/13/18 14:37 - Exam General: Alert, Oriented HEENT: Pupils Equal, Pupils Reactive Neck: Supple, Trachea Midline, No JVD, Other (left cheek swelling and erythema , draining yellow moore pus) Lungs: Clear to Auscultation Cardiovascular: Regular Rate, Regular Rhythm, No Murmurs GI/Abdominal Exam: Normal Bowel Sounds, Soft, Non-Tender, No Distention, No Abnormal Bruit, No Mass Back Exam: Normal Inspection Extremities: Normal Inspection Skin: Warm, Dry, Other (s/p skin incision left fessier , s/p drainage of abscess , tube in place) Wound/Incisions: Healing Well Neurological: No New Focal Deficit Psy/Mental Status: Alert, Normal Affect - Problem List & Annotations (1) Furuncle of face SNOMED Code(s): 97556575 Code(s): L02.02 - FURUNCLE OF FACE Status: Acute Current Visit: Yes (2) Furuncle of buttock SNOMED Code(s): 99552949 Code(s): L02.32 - FURUNCLE OF BUTTOCK Status: Acute Current Visit: Yes (3) Cellulitis SNOMED Code(s): 788851366 Code(s): L03.90 - CELLULITIS, UNSPECIFIED Status: Acute Current Visit: Yes Qualifiers: Site of cellulitis: trunk - Problem List Review Problem List Initiated/Reviewed/Updated: Yes - My Orders Last 24 Hours: My Active Orders 06/14/18 09:48 Ready for Discharge [RC] PER UNIT ROUTINE 06/15/18 05:11 CBC W/O DIFF,HEMOGRAM [HEME] AM COMPREHENSIVE METABOLIC PN,CMP [CHEM] AM 06/15/18 07:30 VANCOMYCIN TROUGH [CHEM] Routine - Plan Plan:: Continue IV vancomycin, pharmacy to dose and IV Zosyn 4.5 g every 6 hours, then follow-up blood cultures - negative day 2 , and wound cultures - staph coagulase positive , in pairs . For incision and drainage today, packing from I and D from the face was removed , Plastic surgery consult seen patient , she will f/up patient as outpatient , recommended antibiotics as per antibiogram. Patient should have Bactroban gel intranasaly for 5 days and chlorhexidine soap to bath, to decolonize him for MRSA and also she should avoid shaving. For DVT prophylaxis Lovenox 40 mg subcutaneous every 24 hours. For pain patient will be given oxycodone 5 mg by mouth every 6 hours when necessary for pain
--- NOTE | 2018-06-14 15:54 | PCM.CONS ---
H&P History of Present Illness - General Date of Service: 06/13/18 Admit Problem/Dx: Admission Diagnosis/Problem Admission Diagnosis/Problem Face abscess Source of Information: Patient, Old Records, RN History Limitations: Reports: No Limitations - History of Present Illness Initial Comments - Free Text/Narative: The patient has had a several day history of 2 abscesses. He denies drug use at this time. We know him previously for the cubital tunnel release we helped him with previously. He has had a longstanding history with these issues and also has one on the gluteal area that was treated by Dr Azevedo today. He is feeling better and notes that the antibiotics are helping alot. The face was previously I and D's in the ER and appears to be improving. Packing was removed earlier today. Still with some induration around the area but significantly less according to the patient. Much less tender. Onset of Symptoms: Reports: Sudden Symptom Onset Date: 06/07/18 Duration of Symptoms: Reports: Day(s): Location: Reports: Face, Pelvis Quality: Reports: Ache, Pressure, Throbbing Severity: Moderate Improves with: Reports: Immobilization, Medication Worsens with: Reports: Movement Associated Symptoms: Reports: Malaise. Denies: Confusion, Fever/Chills, Nausea/ Vomiting left face Pain Score (Numeric/FACES): 0 right buttock Pain Score (Numeric/FACES): 7 - Related Data Allergies/Adverse Reactions: Allergies Allergy/AdvReac Type Severity Reaction Status Date / Time No Known Allergies Allergy Verified 03/11/18 14:43 Home Medications: Home Meds Gabapentin [Neurontin] 300 mg PO DAILY 07/21/17 [History] Omeprazole 20 mg PO DAILY 06/11/18 [History] Hydrocodone/Acetaminophen [Hydrocodon-Acetaminophen 5-325] 1 each PO Q6H PRN # 10 tablet 06/14/18 [Rx] Sulfamethoxazole/Trimethoprim [Bactrim Ds Tablet] 1 each PO BID 12 Days #24 tablet 06/14/18 [Rx] Past Medical History HEENT History: Reports: Other (See Below) Other HEENT History: uses reading glasses Cardiovascular History: Reports: None Respiratory History: Reports: None Gastrointestinal History: Reports: GERD, Hepatitis Other Gastrointestinal History: Hepatitis C Genitourinary History: Reports: None Musculoskeletal History: Reports: Back Pain, Chronic, Fracture Other Musculoskeletal History: hx of fx thumb Neurological History: Reports: Concussion Psychiatric History: Reports: PTSD Endocrine/Metabolic History: Reports: None Hematologic History: Reports: None Immunologic History: Reports: None Oncologic (Cancer) History: Reports: None Dermatologic History: Reports: None - Infectious Disease History Infectious Disease History: Reports: Hepatitis C - Past Surgical History Head Surgeries/Procedures: Reports: None HEENT Surgical History: Reports: Tonsillectomy, Other (See Below) Other HEENT Surgeries/Procedures: closed reduction fx nose, hx of Laryngoscopy with polyp removal Cardiovascular Surgical History: Reports: None Respiratory Surgical History: Reports: None GI Surgical History: Reports: None Male Surgical History: Reports: None Endocrine Surgical History: Reports: None Neurological Surgical History: Reports: None Musculoskeletal Surgical History: Reports: None Oncologic Surgical History: Reports: None Dermatological Surgical History: Reports: None Social & Family History - Family History Family Medical History: Noncontributory - Tobacco Use Smoking Status *Q: Never Smoker Second Hand Smoke Exposure: No - Caffeine Use Caffeine Use: Reports: Energy Drinks - Alcohol Use Date of Last Drink: 06/04/18 - Recreational Drug Use Recreational Drug Use: Yes Drug Use in Last 12 Months: Yes Recreational Drug Type: Reports: Methamphetamine (Pt claims last use was 6 months) Recreational Drug Use Frequency: Not Used In Over 6 Months H&P Review of Systems - Review of Systems: Review Of Systems: See Below General: Reports: No Symptoms HEENT: Reports: Other (chin pain and some marginal mandubular nerve weakness with the irritation. ) Pulmonary: Reports: No Symptoms Cardiovascular: Reports: No Symptoms Musculoskeletal: Reports: No Symptoms Skin: Reports: Wound (abscesses x 2) Psychiatric: Reports: No Symptoms Neurological: Reports: Weakness (of the left marginal mandibular nerve currently but swelling confounds. ) Hematologic/Lymphatic: Reports: No Symptoms Immunologic: Reports: No Symptoms Exam - Exam Exam: See Below - Vital Signs Vital Signs: Last Vital Signs Temp 98.1 F 06/14/18 12:00 Pulse 78 06/14/18 12:00 Resp 18 06/14/18 12:00 BP 137/81 06/14/18 12:00 Pulse Ox 97 06/14/18 12:00 Weight: 223 lb 11.2 oz - Exam General: Alert, Oriented, Cooperative HEENT: EOMI Lungs: Normal Respiratory Effort Extremities: Normal Inspection Skin: Warm, Dry, Wound (left chin wound with previous I and d site with minor surrounding apparently resolving erythema. COnsolodating nicely. No signs of spread and peeling skin notes improvements. ) Neuro Extensive - Mental Status: Alert, Oriented x3, Normal Mood/Affect (a little sleepy post procedure with Dr Azevedo. ) - Patient Data Lab Results Last 24 hrs: Laboratory Results - last 24 hr 06/14/18 06/14/18 Range/Units 05:20 05:20 WBC 8.15 (4.0-11.0) K/uL RBC 4.12 L (4.50-5.90) M/uL Hgb 11.9 L (13.0-17.0) g/dL Hct 35.4 L (38.0-50.0) % MCV 85.9 (80.0-98.0) fL MCH 28.9 (27.0-32.0) pg MCHC 33.6 (31.0-37.0) g/dL RDW Std Deviation 42.0 (28.0-62.0) fl RDW Coeff of Kayla 14 (11.0-15.0) % Plt Count 226 (150-400) K/uL MPV 9.80 (7.40-12.00) fL Nucleated RBC % 0.0 /100WBC Nucleated RBCs # 0 K/uL Sodium 135 L (136-148) mmol/L Potassium 3.9 (3.5-5.1) mmol/L Chloride 103 (98-107) mmol/L Carbon Dioxide 30.2 (21.0-32.0) mmol/L BUN 17 (7.0-18.0) mg/dL Creatinine 0.8 (0.8-1.3) mg/dL Est Cr Clr Drug Dosing 111.53 mL/min Estimated GFR (MDRD) > 60.0 ml/min Glucose 108 H (74-106) mg/dL Calcium 8.1 L (8.5-10.1) mg/dL Total Bilirubin 0.4 (0.2-1.0) mg/dL AST 39 H (15-37) IU/L ALT 64 H (14-63) IU/L Alkaline Phosphatase 64 (46-116) U/L Total Protein 6.3 L (6.4-8.2) g/dL Albumin 2.6 L (3.4-5.0) g/dL Globulin 3.7 H (2.0-3.5) g/dL Albumin/Globulin Ratio 0.7 L (1.3-2.8) Result Diagrams: 06/14/18 05:20 06/14/18 05:20 Josue Results Last 24 hrs: Microbiology 06/13/18 15:30 Gram Stain - Preliminary Buttock, Right Wound Culture - Preliminary 06/11/18 20:05 Aerobic Blood Culture - Preliminary Blood - Venous - Lab Draw NO GROWTH AFTER 2 DAYS Anaerobic Blood Culture - Preliminary NO GROWTH AFTER 2 DAYS 06/11/18 19:55 Aerobic Blood Culture - Preliminary Blood - Venous NO GROWTH AFTER 2 DAYS Anaerobic Blood Culture - Preliminary NO GROWTH AFTER 2 DAYS Consult PN Assessment/Plan Procedures: Procedures ASSAY OF BLOOD/URIC ACID (02/03/17) BLOOD CULTURE FOR BACTERIA (03/11/18) CARPAL TUNNEL SURGERY (07/09/17) COMPLETE CBC W/AUTO DIFF WBC (03/11/18) COMPREHEN METABOLIC PANEL (03/11/18) CT MAXILLOFACIAL W/DYE (03/11/18) DRAIN/INJ JOINT/BURSA W/O US (07/09/17) ELECTROCARDIOGRAM TRACING (03/11/18) EMERGENCY DEPT VISIT (03/11/18) EMERGENCY DEPT VISIT (07/21/17) HYDRATE IV INFUSION ADD-ON (03/11/18) LIPID PANEL (02/03/17) METABOLIC PANEL TOTAL CA (05/12/16) OT EVAL LOW COMPLEX 30 MIN (10/07/17) RBC SED RATE AUTOMATED (02/03/17) REVISE ULNAR NERVE AT ELBOW (07/09/17) ROUTINE VENIPUNCTURE (03/11/18) THER/PROPH/DIAG IV INF INIT (03/11/18) TX/PRO/DX INJ NEW DRUG ADDON (03/11/18) TX/PRO/DX INJ SAME DRUG EQUINE PHARMACOLOGY TECHNICIAN (03/11/18) TX/PROPH/DG ADDL SEQ IV INF (03/11/18) X-RAY EXAM HIP UNI 2-3 VIEWS (12/19/15) X-RAY EXAM OF SHOULDER (07/02/17) (1) Cellulitis SNOMED Code(s): 111550079 Code(s): L03.90 - CELLULITIS, UNSPECIFIED Priority: High Current Visit: Yes Qualifiers: Site of cellulitis: face Qualified Code(s): L03.211 - Cellulitis of face (2) Facial abscess SNOMED Code(s): 187083757 Code(s): L02.01 - CUTANEOUS ABSCESS OF FACE Current Visit: Yes Problem List Initiated/Reviewed/Updated: Yes My Orders Last 24 Hours: My Active Orders 06/13/18 16:47 Communication Order [RC] DAILY Plan: I would recommend continued observation on the face. It has already been opened and is improving. We will continue to watch and can decide on repeat I and D if it is not resolving as expected, but given appearance I anticipate he will do well on continued antibiotics. Transition to orals once ready for discharge based on sensitivities that will likely return tomorrow. Requesting Provider: Dr azevedo Date Consult Requested: 06/13/18 Reason for Consult: facial abscess Patient History Reviewed: Yes Admission H&P Reviewed: Yes Notified Requestor: Yes Time Spent (in minutes): 20
[2018-06-14] MEDS: Enoxaparin 40 MG/0.4 ML Syringe SUBCUT SCH (22:02)
[2018-06-15] MEDS: Piperacillin/Tazobactam 4.5 GM in Sodium Chloride 0.9% 100 ML IV SCH ×2 (03:56→10:19)
[2018-06-15 06:16] LABS: CHLORIDE,CL 102 mmol/L (98-107); SODIUM,NA 137 mmol/L (136-148)
[2018-06-15] MEDS: Omeprazole 20 MG Cap.CR PO SCH (06:30)
[2018-06-15] MEDS: Gabapentin 300 MG Cap PO SCH (08:18)
[2018-06-15 08:23] VITALS: BP 153/85
--- NOTE | 2018-06-15 08:53 | PCM.SN ---
- Free Text/Narrative Note: Patient continues to do well. Minimal discomfort. Afebrile. VSS. Joslyn drain removed without difficulty. Wound clean and dry. Serous drainage. C&S noted. RECOMMENDATIONS: Sitz bath daily and as needed. Use a fan 5-10 minutes after bath to help dry the surgical site. Patient should see me about 10 days post discharge for a wound recheck. That appointment has been made.
--- NOTE | 2018-06-15 22:12 | PCM.DCSUM1 ---
Discharge Summary - Discharge Data Discharge Disposition: Home, Self-Care 01 Condition: Good - Discharge Diagnosis/Problem(s) (1) Furuncle of face SNOMED Code(s): 98800263 ICD Code: L02.02 - FURUNCLE OF FACE Status: Acute (2) Furuncle of buttock SNOMED Code(s): 99027666 ICD Code: L02.32 - FURUNCLE OF BUTTOCK Status: Acute (3) Cellulitis SNOMED Code(s): 234911969 ICD Code: L03.90 - CELLULITIS, UNSPECIFIED Status: Acute Qualifiers: Site of cellulitis: trunk (4) Elevated LFTs SNOMED Code(s): 765730057, 184271958 ICD Code: R94.5 - ABNORMAL RESULTS OF LIVER FUNCTION STUDIES Status: Acute (5) MRSA (methicillin resistant staph aureus) culture positive SNOMED Code(s): 236110135 ICD Code: Z22.322 - CARRIER OR SUSPECTED CARRIER OF METHICILLIN RESIS STAPH Status: Acute (6) Hepatitis C SNOMED Code(s): 93049188 ICD Code: B19.20 - UNSPECIFIED VIRAL HEPATITIS C WITHOUT HEPATIC COMA Status: Acute - Patient Summary/Data Operative Procedure(s) Performed: Incision and drainage right buttock abscess Consults: Consultations 06/12/18 12:39 Consult to Physician [CONS] Routine 06/12/18 17:11 Consult to Physician [CONS] Routine - Patient Instructions Diet: Usual Diet as Tolerated Activity: As Tolerated Showering/Bathing: May Shower - Discharge Plan Prescriptions/Med Rec: Hydrocodone/Acetaminophen [Hydrocodon-Acetaminophen 5-325] 1 each PO Q6H PRN # 10 tablet PRN Reason: Pain Sulfamethoxazole/Trimethoprim [Bactrim Ds Tablet] 1 each PO BID 12 Days #24 tablet Home Medications: Home Meds Gabapentin [Neurontin] 300 mg PO DAILY 07/21/17 [History] Omeprazole 20 mg PO DAILY 06/11/18 [History] Hydrocodone/Acetaminophen [Hydrocodon-Acetaminophen 5-325] 1 each PO Q6H PRN # 10 tablet 06/14/18 [Rx] Sulfamethoxazole/Trimethoprim [Bactrim Ds Tablet] 1 each PO BID 12 Days #24 tablet 06/14/18 [Rx] Patient Handouts: Acetaminophen; Hydrocodone tablets or capsules, Cellulitis, Adult, [id number], Incision and Drainage, Care After, Sulfamethoxazole; Trimethoprim, SMX-TMP tablets Referrals: [facility] [Outside] Jeet Azevedo MD [Physician] - 06/28/18 2:30 pm Kaylin Benito MD [Physician] - Lokesh Turner MD [Physician] - 06/27/18 9:00 am - Patient Data Vitals - Most Recent: Last Vital Signs Temp 97.4 F 06/15/18 08:00 Pulse 77 06/15/18 08:00 Resp 20 06/15/18 08:00 BP 153/85 H 06/15/18 08:00 Pulse Ox 96 06/15/18 08:00 Weight - Most Recent: 223 lb 11.2 oz I&O - Last 24 hours: Intake & Output 06/15/18 06/15/18 06/15/18 06:59 14:59 22:59 Intake Total 700 Output Total 700 Balance 0 Lab Results - Last 24 hrs: Laboratory Results - last 24 hr 06/15/18 06/15/18 06/15/18 Range/Units 05:11 05:40 07:52 WBC 7.34 (4.0-11.0) K/uL RBC 4.33 L (4.50-5.90) M/uL Hgb 12.6 L (13.0-17.0) g/dL Hct 36.9 L (38.0-50.0) % MCV 85.2 (80.0-98.0) fL MCH 29.1 (27.0-32.0) pg MCHC 34.1 (31.0-37.0) g/dL RDW Std Deviation 40.9 (28.0-62.0) fl RDW Coeff of Kayla 13 (11.0-15.0) % Plt Count 226 (150-400) K/uL MPV 9.30 (7.40-12.00) fL Nucleated RBC % 0.0 /100WBC Nucleated RBCs # 0 K/uL Sodium 137 (136-148) mmol/L Potassium 4.1 (3.5-5.1) mmol/L Chloride 102 (98-107) mmol/L Carbon Dioxide 28.2 (21.0-32.0) mmol/L BUN 16 (7.0-18.0) mg/dL Creatinine 0.8 (0.8-1.3) mg/dL Est Cr Clr Drug Dosing 111.53 mL/min Estimated GFR (MDRD) > 60.0 ml/min Glucose 104 (74-106) mg/dL Calcium 8.7 (8.5-10.1) mg/dL Total Bilirubin 0.5 (0.2-1.0) mg/dL AST 73 H (15-37) IU/L ALT 90 H (14-63) IU/L Alkaline Phosphatase 65 (46-116) U/L Total Protein 7.0 (6.4-8.2) g/dL Albumin 2.9 L (3.4-5.0) g/dL Globulin 4.1 H (2.0-3.5) g/dL Albumin/Globulin Ratio 0.7 L (1.3-2.8) Vancomycin Trough 16.7 H (5.0-10.0) ug/mL PEDRO Results - Last 24 hrs: Microbiology 06/11/18 20:05 Aerobic Blood Culture - Preliminary Blood - Venous - Lab Draw NO GROWTH AFTER 4 DAYS Anaerobic Blood Culture - Preliminary NO GROWTH AFTER 4 DAYS 06/11/18 19:55 Aerobic Blood Culture - Preliminary Blood - Venous NO GROWTH AFTER 4 DAYS Anaerobic Blood Culture - Preliminary NO GROWTH AFTER 4 DAYS 06/13/18 15:30 Gram Stain - Final Buttock, Right Wound Culture - Final (Mrsa) Staphylococcus Aureus Anaerobic Culture - Final NO ANAEROBES ISOLATED Med Orders - Current: Current Medications Discontinued Medications Acetaminophen (Tylenol) 650 mg PO Q4H PRN PRN Reason: Pain (Mild 1-3)/fever Hydrocodone Bitart/Acetaminophen ([place] 325-5 Mg) 1 - 2 tab PO Q4H PRN PRN Reason: Pain (moderate 4-6) Albuterol/Ipratropium (Duoneb 3.0-0.5 Mg/3 Ml) 3 ml NEB Q4HRRT PRN PRN Reason: Shortness Of Breath/wheezing Enoxaparin Sodium (Lovenox) 40 mg SUBCUT Q24H [facility] Last Admin: 06/14/18 22:02 Dose: 40 mg Fentanyl (Sublimaze) Confirm Administered Dose 100 mcg .ROUTE .STK-MED ONE Stop: 06/13/18 14:29 Gabapentin (Neurontin) 300 mg PO DAILY [facility] Last Admin: 06/15/18 08:18 Dose: 300 mg Glycopyrrolate (Robinul) Confirm Administered Dose 0.2 mg .ROUTE .STK-MED ONE Stop: 06/13/18 14:30 Hydromorphone HCl (Dilaudid) 1 mg IVPUSH Q3H PRN PRN Reason: Pain Last Admin: 06/12/18 21:19 Dose: 1 mg Sodium Chloride (Normal Saline) 1,000 mls @ 999 mls/hr IV STAT ONE Stop: 06/11/18 20:42 Last Admin: 06/11/18 20:10 Dose: 999 mls/hr Vancomycin HCl 1 gm/ Sodium (Chloride) 250 mls @ 250 mls/hr IV ONETIME ONE Stop: 06/11/18 20:41 Last Admin: 06/11/18 20:09 Dose: 250 mls/hr Lidocaine HCl (Xylocaine-Mpf 1%) Confirm Administered Dose 5 mls @ as directed .ROUTE .STK-MED ONE Stop: 06/11/18 20:01 Last Admin: 06/11/18 20:12 Dose: 1 mls/hr Lactated Ringer's (Ringers, Lactated) 1,000 mls @ 125 mls/hr IV ASDIRECTED [facility] Last Admin: 06/13/18 08:16 Dose: 125 mls/hr Piperacillin Sod/Tazobactam (Sod 4.5 gm/ Sodium Chloride) 100 mls @ 200 mls/hr IV Q6H [facility] Last Admin: 06/12/18 04:47 Dose: 200 mls/hr Vancomycin HCl 1,250 mg/ (Dextrose/Water) 250 mls @ 166.667 mls/hr IV Q12H [facility] Last Admin: 06/12/18 09:15 Dose: Not Given Piperacillin Sod/Tazobactam (Sod 4.5 gm/ Sodium Chloride) 100 mls @ 200 mls/hr IV Q6H [facility] Last Admin: 06/15/18 10:19 Dose: 200 mls/hr Vancomycin HCl 1,250 mg/ (Sodium Chloride) 250 mls @ 166.667 mls/hr IV Q8H [facility] Last Admin: 06/15/18 08:18 Dose: 166.667 mls/hr Lidocaine HCl (Xylocaine-Mpf 1%) Confirm Administered Dose 5 mls @ as directed .ROUTE .STK-MED ONE Stop: 06/13/18 14:29 Iopamidol (Isovue Multipack-370 (76%)) 75 ml IVPUSH ONETIME STA Stop: 06/11/18 21:44 Last Admin: 06/11/18 21:43 Dose: 75 ml Ketorolac Tromethamine (Toradol) 30 mg IVPUSH Q6H PRN PRN Reason: Headache Stop: 06/17/18 00:28 Last Admin: 06/14/18 02:14 Dose: 30 mg Ketorolac Tromethamine (Toradol) Confirm Administered Dose 30 mg .ROUTE .STK- MED ONE Stop: 06/13/18 14:30 Lorazepam (Ativan) 2 mg IV Q4H PRN PRN Reason: Anxiety Last Admin: 06/13/18 04:37 Dose: 2 mg Midazolam HCl (Versed 1 Mg/Ml) Confirm Administered Dose 2 mg .ROUTE .STK-MED ONE Stop: 06/13/18 14:29 Morphine Sulfate (Morphine) 2 mg IVPUSH Q2H PRN PRN Reason: Pain (severe 7-10) Stop: 06/12/18 21:47 Last Admin: 06/12/18 16:23 Dose: 2 mg Morphine Sulfate (Morphine) Confirm Administered Dose 10 mg .ROUTE .STK-MED ONE Stop: 06/13/18 15:00 Morphine Sulfate (Morphine) 1 - 5 mg IVPUSH Q30M PRN PRN Reason: Pain (severe 7-10) Omeprazole (Omeprazole) 20 mg PO ACBREAKFAST JC Last Admin: 06/15/18 06:30 Dose: 20 mg Ondansetron HCl (Zofran) 4 mg IVPUSH Q4H PRN PRN Reason: Nausea Ondansetron HCl (Zofran) Confirm Administered Dose 4 mg .ROUTE .STK-MED ONE Stop: 06/13/18 14:29 Oxycodone HCl (Oxycodone) 5 mg PO Q4H PRN PRN Reason: Pain (moderate 4-6) Last Admin: 06/14/18 16:15 Dose: 5 mg Propofol (Diprivan 20 Ml) Confirm Administered Dose 400 mg .ROUTE .STK-MED ONE Stop: 06/13/18 14:29 Rocuronium Keno (Zemuron) Confirm Administered Dose 100 mg .ROUTE .STK-MED ONE Stop: 06/13/18 14:30 Sodium Chloride (Saline Flush) 10 ml FLUSH ASDIRECTED PRN PRN Reason: Keep Vein Open Sodium Chloride (Saline Flush) 2.5 ml FLUSH ASDIRECTED PRN PRN Reason: Keep Vein Open Sugammadex Sodium ([place]rid[place]) Confirm Administered Dose 200 mg .ROUTE .STK-MED ONE Stop: 06/13/18 14:37 Vancomycin HCl (Pharmacy To Dose - Vancomycin) 0 dose .XX ASDIRECTED JC
== END 2018-06-15 12:14 | disposition home or self-care (01) | DRG 580 ==
LOC: MW.ED 19:24 → MW.MS 20:14 → OBSVTOIN 06-13 07:36
PROVIDERS: ADMIT Internal Medicine; ATTEND Internal Medicine
PROC: 0J910ZZ Drainage of Face Subcutaneous Tissue and Fascia, Open Approach (ICD-10-PCS; principal; 2018-06-13)
PROC: 0J990ZZ Drainage of Buttock Subcutaneous Tissue and Fascia, Open Approach (ICD-10-PCS; 2018-06-13)
DX: L02.02 Furuncle of face (principal); L03.90 Cellulitis, unspecified; L02.32 Furuncle of buttock; B95.62 Methicillin resistant Staphylococcus aureus infection as the cause of diseases classified elsewhere; K21.9 Gastro-esophageal reflux disease without esophagitis; F43.10 Post-traumatic stress disorder, unspecified; Z79.899 Other long term (current) drug therapy; Z86.19 Personal history of other infectious and parasitic diseases
CPT/HCPCS: 00400; 36415; 70487; 70487-26; 80053; 80202; 85025; 85027; 87040; 87070; 87075; 87077; 87186; 87205; 96365; 96366; 96367; 96372; 96375; 96376; 99284-25; A9270-GY; G0378; J1170; J1650; J1885; J2060; J2250; J2270; J2405; J2543; J2704; J3010; J3370; J3490; J7030; J7040; J7050; J7120; Q9967

== ENCOUNTER 2019-01-02 22:16 | Emergency (ER) | payer OTHER ==
--- NOTE | 2019-01-02 22:43 | EDM.PDOC ---
ED HPI GENERAL MEDICAL PROBLEM - General Chief Complaint: Genitourinary Problem Stated Complaint: UNABLE TO URINATE Time Seen by Provider: 01/02/19 22:39 - History of Present Illness INITIAL COMMENTS - FREE TEXT/NARRATIVE: HISTORY AND PHYSICAL: History of present illness: Patient is a 53-year-old white male with recent bowel resection and presents a concern of urinary retention he states he has not been ill for approximately 4- 6 hours he denies other concern Review of systems: As per history of present illness and below otherwise all systems reviewed and negative. Past medical history: As per history of present illness and as reviewed below otherwise noncontributory. Surgical history: As per history of present illness and as reviewed below otherwise noncontributory. Social history: No reported history of drug or alcohol abuse. Family history: As per history of present illness and as reviewed below otherwise noncontributory. Physical exam: HEENT: Atraumatic, normocephalic, pupils reactive, negative for conjunctival pallor or scleral icterus, mucous membranes moist, throat clear, neck supple, nontender, trachea midline. Lungs: Clear to auscultation, breath sounds equal bilaterally, chest nontender. Heart: S1S2, regular, negative for clicks, rubs, or JVD. Abdomen: Soft, nondistended, incisional tenderness marco intact healing well mild suprapubic discomfort to deep palpation. Negative for masses or hepatosplenomegaly. Negative for costovertebral tenderness. Pelvis: Stable nontender. Genitourinary: Deferred. Rectal: Deferred. Extremities: Atraumatic, negative for cords or calf pain. Neurovascular unremarkable. Neuro: Awake, alert, oriented. Cranial nerves II through XII unremarkable. Cerebellum unremarkable. Motor and sensory unremarkable throughout. Exam nonfocal. Diagnostics: Bladder scan UA Therapeutics: Cruz catheter with leg bag Impression: #1 postoperative urinary retention Definitive disposition and diagnosis as appropriate pending reevaluation and review of above. abdomen Pain Score (Numeric/FACES): 10 - Related Data Allergies Allergy/AdvReac Type Severity Reaction Status Date / Time No Known Allergies Allergy Verified 01/02/19 22:28 Home Meds: Home Meds Gabapentin [Neurontin] 300 mg PO DAILY 07/21/17 [History] Omeprazole 20 mg PO DAILY 06/11/18 [History] Hydrocodone/Acetaminophen [Hydrocodon-Acetaminophen 5-325] 1 each PO Q6H PRN # 10 tablet 06/14/18 [Rx] Sulfamethoxazole/Trimethoprim [Bactrim Ds Tablet] 1 each PO BID 12 Days #24 tablet 06/14/18 [Rx] Past Medical History HEENT History: Reports: Other (See Below) Other HEENT History: uses reading glasses Cardiovascular History: Reports: None Respiratory History: Reports: None Gastrointestinal History: Reports: GERD, Hepatitis Other Gastrointestinal History: Hepatitis C Genitourinary History: Reports: None Musculoskeletal History: Reports: Back Pain, Chronic, Fracture Other Musculoskeletal History: hx of fx thumb Neurological History: Reports: Concussion Psychiatric History: Reports: PTSD Endocrine/Metabolic History: Reports: None Hematologic History: Reports: None Immunologic History: Reports: None Oncologic (Cancer) History: Reports: None Dermatologic History: Reports: None - Infectious Disease History Infectious Disease History: Reports: MRSA - Past Surgical History Head Surgeries/Procedures: Reports: None HEENT Surgical History: Reports: Tonsillectomy, Other (See Below) Other HEENT Surgeries/Procedures: closed reduction fx nose, hx of Laryngoscopy with polyp removal Cardiovascular Surgical History: Reports: None Respiratory Surgical History: Reports: None GI Surgical History: Reports: None, Other (See Below) Other GI Surgeries/Procedures: abdominal sx Male Surgical History: Reports: None Endocrine Surgical History: Reports: None Neurological Surgical History: Reports: None Musculoskeletal Surgical History: Reports: None Oncologic Surgical History: Reports: None Dermatological Surgical History: Reports: None Social & Family History - Family History Family Medical History: Noncontributory - Tobacco Use Smoking Status *Q: Never Smoker - Caffeine Use Caffeine Use: Reports: Energy Drinks - Recreational Drug Use Recreational Drug Use: No ED ROS GENERAL - Review of Systems Review Of Systems: ROS reveals no pertinent complaints other than HPI. ED EXAM, GENERAL - Physical Exam Exam: See Below (See dictation) Course - Vital Signs Last Recorded V/S: Last Vital Signs Temp 36.1 C 01/02/19 22:16 Pulse 100 01/02/19 22:16 Resp 18 01/02/19 22:16 BP 139/79 01/02/19 22:16 Pulse Ox 98 01/02/19 22:16 Departure - Departure Time of Disposition: 22:41 Disposition: Home, Self-Care 01 Condition: Good Clinical Impression: Postoperative urinary retention - Discharge Information Referrals: PCP,None [Primary Care Provider] - Additional Instructions: The following information is given to patients seen in the emergency department who are being discharged to home. This information is to outline your options for follow-up care. We provide all patients seen in our emergency department with a follow-up referral. The need for follow-up, as well as the timing and circumstances, are variable depending upon the specifics of your emergency department visit. If you don't have a primary care physician on staff, we will provide you with a referral. We always advise you to contact your personal physician following an emergency department visit to inform them of the circumstance of the visit and for follow-up with them and/or the need for any referrals to a consulting specialist. The emergency department will also refer you to a specialist when appropriate. This referral assures that you have the opportunity for followup care with a specialist. All of these measure are taken in an effort to provide you with optimal care, which includes your followup. Under all circumstances we always encourage you to contact your private physician who remains a resource for coordinating your care. When calling for followup care, please make the office aware that this follow-up is from your recent emergency room visit. If for any reason you are refused follow-up, please contact the [facility] emergency department at and asked to speak to the emergency department charge nurse. Bactrim as prescribed Follow-up Gen. surgery/urology as discussed fully catheter and leg bag as directed and return as needed as discussed
[2019-01-02 23:33] VITALS: BP 133/81
== END 2019-01-02 23:33 | disposition home or self-care (01) ==
LOC: MW.ED 22:16
DX: R33.8 Other retention of urine (principal); K21.9 Gastro-esophageal reflux disease without esophagitis; Z90.49 Acquired absence of other specified parts of digestive tract; Z79.899 Other long term (current) drug therapy
CPT/HCPCS: 81001; 87086; 99283

== ENCOUNTER 2019-09-25 16:38 | Emergency (ER) | payer OTHER ==
--- NOTE | 2019-09-25 17:02 | EDM.PDOC ---
ED HPI GENERAL MEDICAL PROBLEM - General Chief Complaint: Gastrointestinal Problem Stated Complaint: PAIN IN ABDOMINAL REGION Time Seen by Provider: 09/25/19 17:02 Source of Information: Reports: Patient History Limitations: Reports: No Limitations - History of Present Illness INITIAL COMMENTS - FREE TEXT/NARRATIVE: HISTORY AND PHYSICAL: History of present illness: [] Review of systems: As per history of present illness and below otherwise all systems reviewed and negative. Past medical history: As per history of present illness and as reviewed below otherwise noncontributory. Surgical history: As per history of present illness and as reviewed below otherwise noncontributory. Social history: No reported history of drug or alcohol abuse. Family history: As per history of present illness and as reviewed below otherwise noncontributory. Physical exam: General: Patient sitting comfortably in no acute distress and nontoxic appearing HEENT: Atraumatic, normocephalic, pupils reactive, negative for conjunctival pallor or scleral icterus, mucous membranes moist, throat clear, neck supple, nontender, trachea midline. No meningeal signs. Lungs: Clear to auscultation, breath sounds equal bilaterally, chest nontender. Heart: S1S2, regular, negative for clicks, rubs, or overt murmur. Abdomen: Soft, nondistended, nontender. Negative for masses or hepatosplenomegaly. Negative for costovertebral tenderness. No rigidity, rebound , guarding. Pelvis: Stable nontender. Genitourinary: Deferred. Rectal: Deferred. Extremities: Atraumatic, negative for cords or calf pain. Neurovascular unremarkable. Neuro: Awake, alert, oriented. Cranial nerves II through XII unremarkable. Cerebellum unremarkable. Motor and sensory unremarkable throughout. Exam nonfocal. Notes: Diagnostics: [] Therapeutics: [] Prescriptions: Impression: [] Plan: [] Definitive disposition and diagnosis as appropriate pending reevaluation and review of above. - Related Data Allergies Allergy/AdvReac Type Severity Reaction Status Date / Time No Known Allergies Allergy Verified 09/25/19 16:55 Home Meds: Home Meds Omeprazole 20 mg PO DAILY 06/11/18 [History] Past Medical History HEENT History: Reports: Other (See Below) Other HEENT History: uses reading glasses Cardiovascular History: Reports: None Respiratory History: Reports: None Gastrointestinal History: Reports: Bowel Obstruction, GERD, Hepatitis Other Gastrointestinal History: Hepatitis C Genitourinary History: Reports: None Musculoskeletal History: Reports: Back Pain, Chronic, Fracture Other Musculoskeletal History: hx of fx thumb Neurological History: Reports: Concussion Psychiatric History: Reports: Depression, PTSD Endocrine/Metabolic History: Reports: None Hematologic History: Reports: None Immunologic History: Reports: None Oncologic (Cancer) History: Reports: None Dermatologic History: Reports: None - Infectious Disease History Infectious Disease History: Reports: Chicken Pox, Hepatitis C, Mononucleosis - Past Surgical History Head Surgeries/Procedures: Reports: None HEENT Surgical History: Reports: Tonsillectomy, Other (See Below) Other HEENT Surgeries/Procedures: closed reduction fx nose, hx of Laryngoscopy with polyp removal Cardiovascular Surgical History: Reports: None Respiratory Surgical History: Reports: None GI Surgical History: Reports: None, Other (See Below) Male Surgical History: Reports: None Endocrine Surgical History: Reports: None Neurological Surgical History: Reports: None Musculoskeletal Surgical History: Reports: None Oncologic Surgical History: Reports: None Dermatological Surgical History: Reports: None Social & Family History - Family History Family Medical History: Noncontributory - Tobacco Use Smoking Status *Q: Never Smoker - Caffeine Use Caffeine Use: Reports: Energy Drinks - Recreational Drug Use Recreational Drug Use: Yes Recreational Drug Type: Reports: Methamphetamine Recreational Drug Use Frequency: Not Used In Over 6 Months Course - Vital Signs Last Recorded V/S: Last Vital Signs Temp 97.8 F 09/25/19 16:52 Pulse 103 H 09/25/19 16:52 Resp 18 09/25/19 16:52 BP 139/82 09/25/19 16:52 Pulse Ox 97 09/25/19 16:52 - Orders/Labs/Meds Orders: Active Orders 24 hr Category Date Time Status Abdomen 1V Upright [CR] Stat Exams 09/25/19 17:02 Ordered Departure - Discharge Information Referrals: PCP,None [Primary Care Provider] - Forms: ED Department Discharge - My Orders Last 24 Hours: My Active Orders 09/25/19 17:02 Abdomen 1V Upright [CR] Stat - Assessment/Plan Last 24 Hours: My Active Orders 09/25/19 17:02 Abdomen 1V Upright [CR] Stat
--- NOTE | 2019-09-25 17:48 | CR ---
Indication: Pain. Foreign body in rectum for 4 days. Technique: AP views of the abdomen and pelvis were obtained. Comparison: None Findings: A 27 centimeter radiopaque foreign body is identified, presumably within the rectum. The bowel gas pattern is nonobstructive. Moderate amount of stool is identified within the colon. Impression: Large radiopacity, which does include batteries and is most likely a flash light is identified within the abdomen and pelvis, most likely representing the patient`s rectal foreign body. Dictated by Amelia Jimenez MD @ Sep 25 2019 5:45PM Signed by Dr. Amelia Jimenez @ Sep 25 2019 5:47PM
--- NOTE | 2019-09-25 17:51 | EDM.PDOC ---
ED HPI GENERAL MEDICAL PROBLEM - General Chief Complaint: Gastrointestinal Problem Stated Complaint: PAIN IN ABDOMINAL REGION Time Seen by Provider: 09/25/19 17:02 Source of Information: Reports: Patient History Limitations: Reports: No Limitations - History of Present Illness INITIAL COMMENTS - FREE TEXT/NARRATIVE: HISTORY AND PHYSICAL: History of present illness: Patient is a 53-year-old male who presents to the ED today with concern of a flashlight stuck in his rectum x 5 days. Patient states he was having sexual activity with a partner when she had let go of the flashlight and got stuck in his rectum. Patient states he has been close to getting it out a few times but has not been able to get it out. Patient states yesterday and today he started having diarrhea around the flashlight and has been unable to control his stool. Patient states that he is not having any pain but does have a decrease in appetite but has been eating some. Patient denies any other symptoms or concerns. Patient denies fever, chills, chest pain, shortness of breath, or cough. Denies headache, neck stiff ness, change in vision, syncope, or near syncope. Denies nausea, vomiting, abdominal pain, or dysuria. Has not noted any blood in urine or stool. Patient has been eating and drinking appropriately. Review of systems: As per history of present illness and below otherwise all systems reviewed and negative. Past medical history: As per history of present illness and as reviewed below otherwise noncontributory. Surgical history: As per history of present illness and as reviewed below otherwise noncontributory. Social history: See social history for further information Family history: As per history of present illness and as reviewed below otherwise noncontributory. Physical exam: General: Patient is alert, oriented, and in no acute distress. Patient sitting comfortably on exam table. HEENT: Atraumatic, normocephalic, pupils equal and reactive bilaterally, negative for conjunctival pallor or scleral icterus, mucous membranes moist, TMs normal bilaterally, throat clear, neck supple, nontender, trachea midline. No drooling or trismus noted. No meningeal signs. No hot potato voice noted. Lungs: Clear to auscultation, breath sounds equal bilaterally, chest nontender. Heart: S1S2, regular rate and rhythm without overt murmur Abdomen: Soft, nondistended, nontender. Negative for masses or hepatosplenomegaly. Negative for costovertebral tenderness. Pelvis: Stable nontender. Genitourinary: Deferred. Rectal: Incontinence of stool noted. Tone intact. No obvious bleeding, fissures , or lesions noted. There is a hard foreign body approximately 2-3 cm inside the rectum. Skin: Intact, warm, dry. No lesions or rashes noted. Extremities: Atraumatic, negative for cords or calf pain. Neurovascular unremarkable. Neuro: Awake, alert, oriented. Cranial nerves II through XII unremarkable. Cerebellum unremarkable. Motor and sensory unremarkable throughout. Exam nonfocal. Notes: Dr. Azevedo, general surgery, consulted on patient and has come in to personally see patient. See his official consult note for further treatment and disposition for patient. Will transfer to Dr. Esquivel [facility]. EMS arranged. Voices understanding and is agreeable to plan of care. Denies any further questions or concerns at this time. Diagnostics: Abdomen XR Therapeutics: None Impression: Rectal foreign body Plan: Transfer to [facility] to Dr. Esquivel via EMS. Definitive disposition and diagnosis as appropriate pending reevaluation and review of above. - Related Data Allergies Allergy/AdvReac Type Severity Reaction Status Date / Time No Known Allergies Allergy Verified 09/25/19 16:55 Home Meds: Home Meds Omeprazole 20 mg PO DAILY 06/11/18 [History] Past Medical History HEENT History: Reports: Other (See Below) Other HEENT History: uses reading glasses Cardiovascular History: Reports: None Respiratory History: Reports: None Gastrointestinal History: Reports: Bowel Obstruction, GERD, Hepatitis Other Gastrointestinal History: Hepatitis C Genitourinary History: Reports: None Musculoskeletal History: Reports: Back Pain, Chronic, Fracture Other Musculoskeletal History: hx of fx thumb Neurological History: Reports: Concussion Psychiatric History: Reports: Depression, PTSD Endocrine/Metabolic History: Reports: None Hematologic History: Reports: None Immunologic History: Reports: None Oncologic (Cancer) History: Reports: None Dermatologic History: Reports: None - Infectious Disease History Infectious Disease History: Reports: Chicken Pox, Hepatitis C, Mononucleosis - Past Surgical History Head Surgeries/Procedures: Reports: None HEENT Surgical History: Reports: Tonsillectomy, Other (See Below) Other HEENT Surgeries/Procedures: closed reduction fx nose, hx of Laryngoscopy with polyp removal Cardiovascular Surgical History: Reports: None Respiratory Surgical History: Reports: None GI Surgical History: Reports: None, Other (See Below) Male Surgical History: Reports: None Endocrine Surgical History: Reports: None Neurological Surgical History: Reports: None Musculoskeletal Surgical History: Reports: None Oncologic Surgical History: Reports: None Dermatological Surgical History: Reports: None Social & Family History - Family History Family Medical History: Noncontributory - Tobacco Use Smoking Status *Q: Never Smoker - Caffeine Use Caffeine Use: Reports: Energy Drinks - Recreational Drug Use Recreational Drug Use: Yes Recreational Drug Type: Reports: Methamphetamine Recreational Drug Use Frequency: Not Used In Over 6 Months ED ROS GENERAL - Review of Systems Review Of Systems: Comprehensive ROS is negative, except as noted in HPI. ED EXAM, GENERAL - Physical Exam Exam: See Below (see dictation) Course - Vital Signs Last Recorded V/S: Last Vital Signs Temp 97.8 F 09/25/19 16:52 Pulse 103 H 09/25/19 16:52 Resp 18 09/25/19 16:52 BP 139/82 09/25/19 16:52 Pulse Ox 97 09/25/19 16:52 - Orders/Labs/Meds Orders: Active Orders 24 hr Category Date Time Status Notify Provider Consults [RC] ASDIRECTED Care 09/25/19 17:34 Active Consult to Physician [CONS] Stat Cons 09/25/19 17:33 Active Departure - Departure Time of Disposition: 18:48 Disposition: DC/Tfer to [facility] 02 Clinical Impression: Rectal foreign body Qualifiers: Encounter type: initial encounter Qualified Code(s): T18.5XXA - Foreign body in anus and rectum, initial encounter - Discharge Information Referrals: PCP,None [Primary Care Provider] - Forms: ED Department Discharge - My Orders Last 24 Hours: My Active Orders 09/25/19 17:33 Consult to Physician [CONS] Stat 09/25/19 17:34 Notify Provider Consults [RC] ASDIRECTED - Assessment/Plan Last 24 Hours: My Active Orders 09/25/19 17:33 Consult to Physician [CONS] Stat 09/25/19 17:34 Notify Provider Consults [RC] ASDIRECTED
--- NOTE | 2019-09-25 18:35 | PCM.CONS ---
H&P History of Present Illness - General Date of Service: 09/25/19 Admit Problem/Dx: Rectal foreign body X 5 days. Source of Information: Patient History Limitations: Reports: No Limitations - History of Present Illness Initial Comments - Free Text/Narative: 53 y/o gentleman who presented to the ER this afternoon with a rectal foreign body. States his girlfriend inserted this 5 days ago and it hasn't come out. He now presents with inability to have a bowel movement and pain. States the flashlight was about a foot long. This is confirmed/verified with abdominal flat plate. Symptom Onset Date: 09/20/19 Location: Reports: Abdomen, Pelvis Improves with: Reports: None Worsens with: Reports: Movement Associated Symptoms: Reports: No Other Symptoms - Related Data Allergies/Adverse Reactions: Allergies Allergy/AdvReac Type Severity Reaction Status Date / Time No Known Allergies Allergy Verified 09/25/19 16:55 Home Medications: Home Meds Omeprazole 20 mg PO DAILY 06/11/18 [History] Past Medical History HEENT History: Reports: Other (See Below) Other HEENT History: uses reading glasses Cardiovascular History: Reports: None Respiratory History: Reports: None Gastrointestinal History: Reports: Bowel Obstruction, GERD, Hepatitis Other Gastrointestinal History: Hepatitis C Genitourinary History: Reports: None Musculoskeletal History: Reports: Back Pain, Chronic, Fracture Other Musculoskeletal History: hx of fx thumb Neurological History: Reports: Concussion Psychiatric History: Reports: Depression, PTSD Endocrine/Metabolic History: Reports: None Hematologic History: Reports: None Immunologic History: Reports: None Oncologic (Cancer) History: Reports: None Dermatologic History: Reports: None - Infectious Disease History Infectious Disease History: Reports: Chicken Pox, Hepatitis C, Mononucleosis - Past Surgical History Head Surgeries/Procedures: Reports: None HEENT Surgical History: Reports: Tonsillectomy, Other (See Below) Other HEENT Surgeries/Procedures: closed reduction fx nose, hx of Laryngoscopy with polyp removal Cardiovascular Surgical History: Reports: None Respiratory Surgical History: Reports: None GI Surgical History: Reports: None, Other (See Below) Male Surgical History: Reports: None Endocrine Surgical History: Reports: None Neurological Surgical History: Reports: None Musculoskeletal Surgical History: Reports: None Oncologic Surgical History: Reports: None Dermatological Surgical History: Reports: None Social & Family History - Family History Family Medical History: Noncontributory - Tobacco Use Smoking Status *Q: Never Smoker - Caffeine Use Caffeine Use: Reports: Energy Drinks - Recreational Drug Use Recreational Drug Use: Yes Recreational Drug Type: Reports: Methamphetamine Recreational Drug Use Frequency: Not Used In Over 6 Months H&P Review of Systems - Review of Systems: Review Of Systems: See Below General: Denies: Fever, Chills, Malaise, Weakness, Fatigue HEENT: Reports: No Symptoms Pulmonary: Denies: Shortness of Breath, Wheezing Cardiovascular: Denies: Chest Pain Gastrointestinal: Reports: Abdominal Pain, Diarrhea, Decreased Appetite, Flatus , Stool Incontinence. Denies: Anorexia, Black Stool, Bloody Stool, Distension, Melena, Nausea, Vomiting Genitourinary: Denies: Dysuria, Frequency, Burning, Pain, Urgency Musculoskeletal: Reports: No Symptoms Skin: Denies: Cyanosis, Jaundice, Mottled Psychiatric: Denies: Confusion, Depression, Anxiety Neurological: Reports: No Symptoms Hematologic/Lymphatic: Reports: No Symptoms Immunologic: Reports: No Symptoms Exam - Exam Exam: See Below - Vital Signs Vital Signs: Last Vital Signs Temp 97.8 F 09/25/19 16:52 Pulse 103 H 09/25/19 16:52 Resp 18 09/25/19 16:52 BP 139/82 09/25/19 16:52 Pulse Ox 97 09/25/19 16:52 Weight: 198 lb 6.656 oz - Exam Quality Assessment: No: Supplemental Oxygen, Central Line/PICC, Urinary Catheter General: Alert, Oriented, Cooperative, Moderate Distress HEENT: Conjunctiva Clear, Pupils Equal, Pupils Reactive. No: Scleral Icterus Neck: Supple, Trachea Midline Lungs: Clear to Auscultation, Normal Respiratory Effort Cardiovascular: Regular Rate, Regular Rhythm GI/Abdominal Exam: Normal Bowel Sounds, Soft, Non-Tender, No Distention, No Mass , Other (Well healed midline incision from laparotomy for bowel obstruction about one year ago.). No: Guarding, Rigid, Rebound (Male) Exam: No Hernia Rectal (Males) Exam: Other (Large foreign body is palpable in the rectum. Patient asked to bear down but flashlight doesn't move.) Skin: Warm, Dry, Intact Neuro Extensive - Mental Status: Alert, Oriented x3, Normal Mood/Affect Psychiatric: Alert, Normal Affect, Normal Mood Consult PN Assessment/Plan Procedures: Procedures ASSAY OF BLOOD/URIC ACID (02/03/17) BLOOD CULTURE FOR BACTERIA (03/11/18) CARPAL TUNNEL SURGERY (07/09/17) COMPLETE CBC W/AUTO DIFF WBC (02/06/19) COMPREHEN METABOLIC PANEL (02/06/19) CT MAXILLOFACIAL W/DYE (03/11/18) DRAIN/INJ JOINT/BURSA W/O US (07/09/17) ELECTROCARDIOGRAM TRACING (03/11/18) EMERGENCY DEPT VISIT (01/02/19) EMERGENCY DEPT VISIT (03/11/18) EMERGENCY DEPT VISIT (07/21/17) HYDRATE IV INFUSION ADD-ON (03/11/18) INSERT TEMP BLADDER CATH (01/02/19) LIPID PANEL (02/03/17) METABOLIC PANEL TOTAL CA (05/12/16) MICROBE SUSCEPTIBLE PEDRO (01/02/19) OT EVAL LOW COMPLEX 30 MIN (10/07/17) RBC SED RATE AUTOMATED (02/03/17) REVISE ULNAR NERVE AT ELBOW (07/09/17) ROUTINE VENIPUNCTURE (02/06/19) THER/PROPH/DIAG IV INF INIT (03/11/18) TX/PRO/DX INJ NEW DRUG ADDON (03/11/18) TX/PRO/DX INJ SAME DRUG DYNAMICS AX SOLUTION ARCHITECT (03/11/18) TX/PROPH/DG ADDL SEQ IV INF (03/11/18) URINALYSIS AUTO W/SCOPE (01/02/19) URINE BACTERIA CULTURE (01/02/19) URINE CULTURE/COLONY COUNT (01/02/19) US URINE CAPACITY MEASURE (01/02/19) X-RAY EXAM HIP UNI 2-3 VIEWS (12/19/15) X-RAY EXAM OF SHOULDER (07/02/17) (1) Rectal foreign body SNOMED Code(s): 63535773 Code(s): T18.5XXA - FOREIGN BODY IN ANUS AND RECTUM, INITIAL ENCOUNTER Priority: High Current Visit: Yes Qualifiers: Encounter type: initial encounter Qualified Code(s): T18.5XXA - Foreign body in anus and rectum, initial encounter Problem List Initiated/Reviewed/Updated: Yes Plan: Do not have the instrumentation available to remove this transanally. Given the fact that it has been there for five days there is a significant potential for rectal perforation, the need for laparotomy and diverting colostomy. Patient needs to be transferred to a larger facility with ICU and stomal capability. Spoke with Dr. Bauer at [facility] in [place] and he has accepted the patient for transfer.
[2019-09-25] MEDS ORDERED: Bacitracin Oint 1 GM U/D Packet TOP ONE (19:18)
[2019-09-25 19:22] VITALS: BP 135/88; PULSE 101
== END 2019-09-25 19:40 ==
LOC: MW.ED 16:38
DX: T18.5XXA Foreign body in anus and rectum, initial encounter (principal)
CPT/HCPCS: 74018; 74018-26; 99283; 99285-25

== ENCOUNTER 2022-01-23 07:16 | Day surgery (SDC) | payer OTHER ==
[~2022-01-23 07:16] MED LIST changes: -Bupivacaine 25%/EPINEPHrine/PF 30 ML ONE; +Lactated Ringers 1,000 ML IV SCH
[2022-01-23] MEDS ORDERED: Midazolam 1 MG/ML 2 ML SDV ONE (07:28)
[2022-01-23] MEDS ORDERED: fentaNYL 100 MCG/2 ML SDV ONE (07:28)
[2022-01-23] MEDS ORDERED: Ketamine HCL/NACL, ISO-OSM 50 MG/5 ML Syringe ONE (07:28)
[2022-01-23] MEDS ORDERED: Propofol 200 MG/20 ML SDV ONE ×2 (07:28→09:24)
[2022-01-23 09:51] VITALS: PULSE 80
[2022-01-23 10:39] VITALS: BP 106/82
== END 2022-01-23 10:40 | disposition home or self-care (01) ==
LOC: MW.SDS 07:16
PROVIDERS: ATTEND Surgery
DX: K92.1 Melena (principal); K62.89 Other specified diseases of anus and rectum; K51.90 Ulcerative colitis, unspecified, without complications; D64.9 Anemia, unspecified; K21.00 Gastro-esophageal reflux disease with esophagitis, without bleeding; Z90.49 Acquired absence of other specified parts of digestive tract; E66.9 Obesity, unspecified; Z68.33 Body mass index [BMI] 33.0-33.9, adult; Z98.890 Other specified postprocedural states; Z79.899 Other long term (current) drug therapy; Z87.891 Personal history of nicotine dependence
CPT/HCPCS: 00813; J2250; J2704; J3010; J7120